=== PATIENT | female | born 1940 | race Caucasian/White ===

== ENCOUNTER 2016-06-16 16:40 | Inpatient (IN) | payer MEDICARE, OTHER ==
[~2016-06-16] VITALS: Ht 157.5 cm; Wt 77.3 kg
[2016-06-16] VITALS (7 sets, daily range): BP systolic 136–150; BP diastolic 82–95; PULSE 80–140; RESP 18–26; O2SAT 90–99
[~2016-06-16 16:40] MED LIST: ANAS1TAB7 PO; ERGO400T3 PO; GLUC-120 PO; MULT1CAP33 PO; OMEG-38 PO; OXYC1TAB24 PO; PRAM0.256 PO; RES15 PO
[2016-06-16 17:12] LABS: BASOPHILS % (AUTO) 0.1 % (0-3); EOSINOPHILS % (AUTO) 0.5 % (0-5); MONOCYTES % (AUTO) 9.1 % (4-12); Mean Corpuscular Hemoglobin 32.9 pg (27.0-35.0); Mean Corpuscular Volume 97.9 fL (81-100); NEUTROPHILS % (AUTO) 78.9 % (40-74); Platelet Count 230 bil/L (150-400)
[2016-06-16 17:37] LABS: TROPONIN T < 0.010 ug/L (0.0-0.011)
--- NOTE | 2016-06-16 17:43 | DRSVH ---
PROCEDURE: X-RAY CHEST ONE VIEW, PORTABLE ([id number]) INDICATIONS: A FIB, COUGH TECHNIQUE: One view of the chest was acquired. COMPARISON: [facility], CR, XR CHEST 2V AP/PA AND LAT, 04/28/2016, 10:50 AM. Former[facility], CR, CHEST 1VW (PORTABLE), 03/19/2014, 12:08. FINDINGS: Surgical changes and devices: None. Lungs and pleura: No pleural effusions or pneumothorax. Moderate patchy left basilar airspace opacit y. Mediastinum: Mediastinal contours appear normal. Heart size is normal. Bones and chest wall: No suspicious bony lesions. Overlying soft tissues appear unremarkable. IMPRESSION: Left basilar pneumonia. Continued plain film surveillance is recommended to ensure resolu tion, and to exclude underlying or central malignancy. Dictated by: Angelika Osorio M.D. on 06/16/2016 at 17:40 Approved by: Angelika Osorio M.D. on 06/16/2016 at 17:40
[2016-06-16 17:46] LABS: Magnesium 1.8 mg/dL (1.6-2.6)
--- NOTE | 2016-06-16 18:21 | ED.REPORT ---
HPI-Chest Pain 40 and Over Date of Service Jun 16, 2016 ED Provider: Faiza Butler MD Patient is a 75 year old female who presents to the ED after being referred by urgent care complaining of a chest pain. Associated symptoms include a non- productive cough onset 2 months ago. She denies fever, chills, or any other symptoms. She was told by a lung specialist in [place] that her cough was due to acid reflux. She was put on medication that worked for a few weeks but her cough has returned. She saw her pcp yesterday who suggested seeing an ENT specialist. She was in atrial fibrillation at urgent care today. Nursing Notes Stated Complaint: COUGH Chief Complaint: Respiratory Complaints Nursing Notes Reviewed: Yes Allergies: Coded Allergies: acetaminophen (Verified Adverse Reaction, Intermediate, activates restless leg syndome, 06/16/16) Scheduled Anastrozole (Anastrozole) 1 Mg Tablet 1 MG PO DAILY Ergocalciferol (Vitamin D2) (Vitamin D) 400 Unit Tablet 400 UNIT PO DAILY Gluc 2Kcl/Chondr/Majo Hy/Hy AC (Glucosamine & Chondroitin Cap) 1 Each Capsule 1 EACH PO DAILY Multivitamin (Multivitamins) 1 Each Capsule 1 EACH PO DAILY David-3/Dha/Epa/Fish Oil (Fish Oil 1,000 mg Softgel) 1 Each Capsule 1 EACH PO DAILY Pramipexole Dihydrochloride (Pramipexole Dihydrochloride) 0.5 Mg Tablet 0.5 MG PO QID Temazepam (Temazepam) 15 Mg Capsule 15 MG PO HS Scheduled PRN Albuterol HFA (Proair HFA) 8.5 Gm Hfa.aer.ad 2 PUFFS INHALATION Q4H PRN PRN For Shortness of Breath oxyCODONE (oxyCODONE) 5 Mg Tablet 2.5-5 MG PO TID PRN PRN For Pain General Time Seen by MD: 18:16 Chief Complaint Chest pain Hx Obtained From: Patient Arrived By: Walk-in Sudden in Onset?: Yes (Today ) Recent Healthcare: Recent doctor visit Risk Factors )( CAD Risk Stratification Diabetes mellitusNo Amphetamine, No Cocaine, No Hypertension, No Smoking Risk factors reviewed )( TAD Risk Stratification No Hypertension, No Risk factors reviewed )( PE Risk Stratification No Coagulation Disorder, No Risk factors reviewed Past Medical History Past Medical History breast cancer x2 anxiety Reports: Diabetes mellitus (diet controlled), Denies: Hypertension Past Surgical History Mastectomy Appendectomy Colonoscopy Reports: Cataract surgery Reports: Tubal ligation Family History noncontributory Smoking History Former Smoker (1/2 pack day for 30 yrs ) Social History Alcohol Use: Denies alcohol use Drug Use: Denies drug use Other Social History: Good social support, , Local resident Ambulatory Status Independent Review of Systems Constitutional: Reports: Chills, Denies: Fever Respiratory: Reports: Non-productive cough Cardiovascular: Reports: Chest pain Complete sys rev & neg: except as marked. Physical Exam Initial Vital Signs Vital Signs (First) Date Time Temp Pulse Resp B/P Pulse Ox O2 Delivery O2 Flow Rate FiO2 06/16/16 16:44 36.8 80 21 146/95 97 Room Air Initial VS: Reviewed Head / Eyes: Atraumatic, Normocephalic Neck: Full range of motion Extremities: Vascular intact, Neuro intact, No swelling Skin: Warm, Dry Neurologic: Alert, Oriented, Nonfocal Psychiatric: Mood/affect normal, Behavior normal, Normal thought content General/Constitutional: Awake, Alert, Well developed Respiratory / Chest: No chest tenderness Diffuse corse cough Cardiovascular: Heart rate NL, Regular rhythm, Heart sounds NL No edema Abdomen: Atraumatic, Soft, Non-tender Interpretation & Diagnostics Lab Results Interpretation Result Diagram: 06/16/16 1705 06/16/16 1705 Test 06/16/16 17:05 White Blood Count 9.6th/mm3 (3.8-10.1) Red Blood Count 3.83mil/mm3 (3.90-5.20) Hemoglobin 12.6g/dL (12.0-15.6) Hematocrit 37.5% (35.0-46.0) Mean Corpuscular Volume 97.9fL (81-100) Mean Corpuscular Hemoglobin 32.9pg (27.0-35.0) Mean Corpuscular Hemoglobin Concent 33.6% (32.0-37.0) Red Cell Distribution Width 11.6% (12.3-15.4) Platelet Count 230bil/L (150-400) Neutrophils (%) (Auto) 78.9% (40-74) Lymphocytes (%) (Auto) 11.1% (14-46) Monocytes (%) (Auto) 9.1% (4-12) Eosinophils (%) (Auto) 0.5% (0-5) Basophils (%) (Auto) 0.1% (0-3) Sodium Level 139mEq/L (134-144) Potassium Level 3.7mEq/L (3.5-5.2) Chloride Level 100mEq/L (97-108) Carbon Dioxide Level 24mmol/L (18-29) Blood Urea Nitrogen 14mg/dL (8-27) Creatinine 0.55mg/dL (0.57-1.00) Estimat Glomerular Filtration Rate 154mL/min (>59) Glucose Level 127mg/dL (60-99) Calcium Level 9.3mg/dL (8.5-10.1) Magnesium Level 1.8mg/dL (1.6-2.6) Total Bilirubin 0.4mg/dL (0.0-1.2) Aspartate Amino Transf (AST/SGOT) 16U/L (0-50) Alanine Aminotransferase (ALT/SGPT) 17U/L (0-32) Alkaline Phosphatase 70U/L (25-165) Troponin T < 0.010ug/L (0.0-0.011) Total Protein 7.6g/dL (6.4-8.4) Albumin 3.6g/dL (3.4-5.0) Procalcitonin < 0.05ng/mL (See Comment) Thyroid Stimulating Hormone (TSH) 2.760uIU/mL (0.450-4.500) ECG Interpretation ECG Interpretation: afib (new) rate 138 rapid ventricular response no ST elevations no T wave inversion Time: 18:00 Interpreted by: ED physician X-Ray Chest Interpretation Chest Xray Interpretation: IMPRESSION: Left basilar pneumonia. Continued plain film surveillance is recommended to ensure resolution, and to exclude underlying or central malignancy. Dictated by: Angelika Osorio M.D. on 06/16/2016 at 17:40 Approved by: Angelika Osorio M.D. on 06/16/2016 at 17:40 View: Portable, 1 view Interpretation / Wet Read by: Interpret - Radiologist Re-Eval/Medical Decision Med Decision/Clinical Course 75-year-old female with no past medical history here with chest pain and cough. Patient had evidence of A. fib with RVR on her initial EKG. This has since resolved. Differential diagnosis includes but is not limited to influenza versus pneumonia versus upper respiratory infection versus ACS. Labs are unremarkable, however, patient does have evidence of pneumonia on her chest x- ray. Given she had episodes of A. fib with RVR documented, at this time, I feel she requires admission for ACS rule out along with IV antibiotics. Patient and family are aware and amenable to plan. Time of Eval: 18:59 Re-Evaluation/Progress Note: Discussed EKG results and need for admission. Patient understands and agrees with plan. All questions addressed at this time. Consultation : Referral / Consult Name: Christine Mcginnis MD Consulted With: Hospitalist Call Returned at: 17:40 Jar Filler: Will see patient, Agrees with eval, Agrees with plan, Accepts admit Note: Discussed patient's case. Accepts admit. Counseled Regarding: Diagnosis, Lab results, Need for admission Discharge & Departure Disposition: ADMITTED TO HOSPITAL Referrals: Sj Godfrey MD (PCP) Scribe Attestation Portions of this note were transcribed by Ana Carrillo. I, Dr. Butler personally performed the history, physical exam and medical decision-making; I reviewed and confirmed the accuracy of the information in the transcribed note. Signed by: Ana Carrillo 06/16/2016, 5195 copies to: Sj Godfrey MD, Rebecca A MD Jun 16, 2016 18:21 ANA CARRILLO Jun 16, 2016 18:34
[2016-06-16] MEDS ORDERED: cefTRIAXone Inj 1,000 MG in IV Premix 1 EACH IV ONE (18:35)
[2016-06-16] MEDS ORDERED: Albuterol-Ipratropium 3 mL Inhalation Solution NEB ONE (18:35)
[2016-06-16] MEDS ORDERED: Alum-Mag Hydrox-Simeth 30 mL Suspension PO PRN ×2 (20:05→21:20)
[2016-06-16] MEDS ORDERED: Ondansetron 2 mg/mL 2 mL Inj IVPUSH PRN (20:05)
[2016-06-16] MEDS ORDERED: PRAM0.5T10 PO (20:57)
[2016-06-16] MEDS ORDERED: ALBU8.5H2 INHALATION (20:57)
[2016-06-16] MEDS ORDERED: OXYC5TAB72 PO (20:57)
[2016-06-16] MEDS ORDERED: Polyethylene Glycol (PEG) 17 Gm Powder PO PRN (21:20)
[2016-06-16] MEDS ORDERED: Albuterol 2.5 mg/3 mL Inhalation Solution NEB PRN (21:20)
--- NOTE | 2016-06-16 21:32 | PCM.HPMED ---
Subjective Date of Service Jun 16, 2016 Primary Provider: Admitting Physician: Christine Mcginnis MD Primary Care Physician: Sj Godfrey MD Attending Physician: Christine Mcginnis MD Admit Status: From the Emergency Department, Full Admit Chief Complaint: cough, History of Present Illness: This is a 75-year-old female who presents with history over the past 2 days of worsening cough. She notes a productive she denies any fevers or chills. Does have malaise with this. No recent sick contacts. He does over the past several months have a cough has been evaluated by pulmonary provider and thought that it was related to acid reflux. He denies any head congestion or postnasal drainage. She denies any wheezing. She does feel like she has some chest tightness with coughing. Denies any abdominal pain. Denies any nausea or vomiting. Denies any alteration in bowel movements. Upon presentation she was found to be in RVR A. fib. Has no known history of this. She initially was seen in urgent care and because of this was sent over to the emergency room. Review of Systems: all other review of sytems are reviewed and are negative except as in HPI. Allergies Coded Allergies: acetaminophen (Verified Adverse Reaction, Intermediate, activates restless leg syndome, 06/16/16) Home Medications Scheduled Anastrozole (Anastrozole) 1 Mg Tablet 1 MG PO DAILY Pramipexole Dihydrochloride (Pramipexole Dihydrochloride) 0.25 Mg Tablet 0.25 MG PO QID Scheduled PRN Temazepam (Temazepam) 15 Mg Capsule 15-30 MG PO HS PRN PRN For Insomnia oxyCODONE-Acetaminophen 5-325 mg (oxyCODONE-Acetaminophen 5-325 mg) 1 Each Tablet 1-2 TAB PO Q6H PRN PRN For Pain Miscellaneous Medications Ergocalciferol (Vitamin D2) (Vitamin D) 400 Unit Tablet 400 UNIT PO Gluc 2Kcl/Chondr/Majo Hy/Hy AC (Glucosamine & Chondroitin Cap) 1 Each Capsule 1 EACH PO Multivitamin (Multivitamins) 1 Each Capsule 1 EACH PO [place]-3/Dha/Epa/Fish Oil (Fish Oil 1,000 mg Softgel) 1 Each Capsule 1 EACH PO PMH breast cancer x2 anxiety Reports: Diabetes mellitus (diet controlled), Denies: Hypertension Surgical History Mastectomy Appendectomy Colonoscopy Reports: Cataract surgery Reports: Tubal ligation Family History No history of heart disease Social History Hx Alcohol Use: No (RARE) Hx Substance Use: No Hx Tobacco Use: Yes (30 years of < 1/2 pack cigarettes per day) Smoking Status: Former Smoker (1/2 pack day for 30 yrs ) Living Arrangement: with Family Exam Vital Signs Vital Sign - Last Date Time Temp Pulse Resp B/P Pulse Ox O2 Delivery O2 Flow Rate FiO2 06/16/16 20:57 102 26 136/82 95 Nasal Cannula 2 06/16/16 16:44 36.8 Exam Constitutional: Ill-appearing female with cough Head: Normocephalic atraumatic Eyes: PERRLA DC EOMI Mouth: No lesions Neck: Carotids 2+ over 4 without bruits Chest: Crackles at her left base and some anterior expiratory wheezes Cor: Irregular regular rate and rhythm S1-S2 Abdomen: Soft nontender bowel sounds present Extremities: No pedal edema Skin: No rashes Psych: Mood and affect appropriate Neuro: Alert and oriented 3, motor strength is intact bilaterally Lab and Diagnostics Labs Laboratory Tests 72 Hours Test 06/16/16 17:05 White Blood Count 9.6th/mm3 (3.8-10.1) Red Blood Count 3.83mil/mm3 (3.90-5.20) Hemoglobin 12.6g/dL (12.0-15.6) Hematocrit 37.5% (35.0-46.0) Mean Corpuscular Volume 97.9fL (81-100) Mean Corpuscular Hemoglobin 32.9pg (27.0-35.0) Mean Corpuscular Hemoglobin Concent 33.6% (32.0-37.0) Red Cell Distribution Width 11.6% (12.3-15.4) Platelet Count 230bil/L (150-400) Neutrophils (%) (Auto) 78.9% (40-74) Lymphocytes (%) (Auto) 11.1% (14-46) Monocytes (%) (Auto) 9.1% (4-12) Eosinophils (%) (Auto) 0.5% (0-5) Basophils (%) (Auto) 0.1% (0-3) Sodium Level 139mEq/L (134-144) Potassium Level 3.7mEq/L (3.5-5.2) Chloride Level 100mEq/L (97-108) Carbon Dioxide Level 24mmol/L (18-29) Blood Urea Nitrogen 14mg/dL (8-27) Creatinine 0.55mg/dL (0.57-1.00) Estimat Glomerular Filtration Rate 154mL/min (>59) Glucose Level 127mg/dL (60-99) Calcium Level 9.3mg/dL (8.5-10.1) Magnesium Level 1.8mg/dL (1.6-2.6) Total Bilirubin 0.4mg/dL (0.0-1.2) Aspartate Amino Transf (AST/SGOT) 16U/L (0-50) Alanine Aminotransferase (ALT/SGPT) 17U/L (0-32) Alkaline Phosphatase 70U/L (25-165) Troponin T < 0.010ug/L (0.0-0.011) Total Protein 7.6g/dL (6.4-8.4) Albumin 3.6g/dL (3.4-5.0) Result Diagram: 06/16/16170406/16/161704 X-Rays, CTs and MRIs Patient Name: CAITLIN FRASER MR#: [id number] [place] [facility] [place] Phys: DOC, ED Date of Service: 06/16/161657 PROCEDURE: X-RAY CHEST ONE VIEW, PORTABLE ([id number]) INDICATIONS: A FIB, COUGH TECHNIQUE: One view of the chest was acquired. COMPARISON: [facility], CR, XR CHEST 2V AP/PA AND LAT, 04/28/2016 , 10:50 AM. [facility], CR, CHEST 1VW (PORTABLE), 03/19/2014, 12:08. FINDINGS: Surgical changes and devices: None. Lungs and pleura: No pleural effusions or pneumothorax. Moderate patchy left basilar airspace opacity. Mediastinum: Mediastinal contours appear normal. Heart size is normal. Bones and chest wall: No suspicious bony lesions. Overlying soft tissues appear unremarkable. IMPRESSION: Left basilar pneumonia. Continued plain film surveillance is recommended to ensure resolution, and to exclude underlying or central malignancy. Dictated by: Angelika Osorio M.D. on 06/16/2016 at 17:40 Approved by: Angelika Osorio M.D. on 06/16/2016 at 17:40 12-lead ECG RVR a fib at 138 otherwise no abnormality. Assessment & Plan # Left lower lobe pneumonia, present on admission Check sputum studies Place and drop precautions until he can get results of respiratory viral PCR Place on IV Rocephin and azithromycin IV Albuterol nebs when necessary for wheezing # RVR A. fib, new onset, present on admission Check TSH and echocardiogram. Check serial cardiac enzymes [id number] is [address] on therapeutic lovenox and discuss with pt tomorrow after echo returns Initiate metoprolol tartrate 12.5 mg by mouth twice a day Place on telemetry. Repeat EKG in a.m. # DVT prophylaxis Patient currently is on therapeutic Lovenox # CODE STATUS Patient is full code. Pain Evaluation: Adequate Pain Control GI Prophylaxis: H2 biju VTE Prophylaxis Indicated: Meets Criteria for Anticoag Therapy VTE Prophylaxis: Sub-Q Enoxaparin (we will place on therapeutic Lovenox secondary to A. fib) VTE Mechanical Devices: Intermittant Pneumatic CD Resuscitation Status: CPR: Attempt Resuscitation Time spent 60 minutes Christine Mcginnis MD Jun 16, 2016 21:32
[2016-06-16] MEDS: 0.9% Sodium Chloride 1,000 ML IV SCH (23:14)
[2016-06-17] VITALS (8 sets, daily range): BP systolic 106–145; BP diastolic 70–86; PULSE 87–112; RESP 18–36; O2SAT 90–97
--- NOTE | 2016-06-17 04:37 | NUR ---
Admit Admitted to 3006 from ED via stretcher. Able to ambulate on arrival. Reports MONREAL and dry non productive cough. Denies SOB @ rest on 2L NC. Tele SR without c/o cardiac CP. Reports sternal pain with cough which has resolved with prn Oxycodone. Denies n/v and tolerating PO intake without any difficulties. Denies issues with bowel or bladder function with last BM on arrival to floor. Good strength with steady gait but decreased activity tolerance r/t MONREAL. Alert, oriented and cooperative with care. NS @ 100ml/hr initiated per orders. Personal belongings at bedside per patient request. Oriented to call light use with return demonstration.
[2016-06-17] MEDS: 0.9% Sodium Chloride 1,000 ML IV SCH ×2 (08:27→18:29)
[2016-06-17] MEDS: cefTRIAXone Inj 2,000 MG in IV Premix 1 EACH IV SCH (08:28)
--- NOTE | 2016-06-17 10:41 | NUR ---
Telemetry: Notified by radiation monitor, patient converted to A-Fib 120-140s @ approx 0955. notified @ approx 1000. No new orders received. Addendum: 06/17/16 at 1700 by JP GANDHI RN MD notified of patient HR continuing to be A Fib 120-130s. Order received for Metoprolol IV. Addendum: 06/17/16 at 1731 by JP GANDHI RN IV Metoprolol administered. HR ranging from 90s to 120s per radiation monitor.
[2016-06-17] MEDS: Azithromycin Inj 500 MG in Dextrose 5% w/Vial Mate 250 ML IV SCH (10:44)
[2016-06-17 13:56] LABS: APPEARANCE,URINE HAZY (CLEAR,HAZY); COLOR,URINE DARK YELLOW (YELLOW); OCCULT BLOOD,URINE NEGATIVE (NEGATIVE); UROBILINOGEN,URINE NORMAL (NORMAL)
--- NOTE | 2016-06-17 16:19 | NUR ---
Social Work: Initial Assessment Data: Pt is a 75 y/o female admitted for new onset AFIB, pneumonia, chest pain. Pt's PCP is Dr Godfrey, pt's insurance is Medicare with [employer]. EMR reviewed, PROGRAMS ASSISTANT met with pt at bedside, role explained. Pt states that she lives with her spouse in a single story home where she uses no DME. She states her spouse is a good support to contact if needed and that she does not have a DPOA, she accepted information. Pt statest hat she drives, has no history of SNF or HH, no LTC or VA benefits, and is not a caregiver for another. She reports she has been up in her room independently. Likely no d/c planning needs at this time. PROGRAMS ASSISTANT will continue to follow if needs arise. Assessment: Pt who is independent at baseline. Plan: Pt will d/c home via POV with spouse when medically stable. Likely no d/c planning needs at this time. PROGRAMS ASSISTANT will continue to follow if needs arise. RADHA Thomas Addendum: 06/17/16 at 1622 by SANA HORN Amended: Links added.
[2016-06-17] MEDS ORDERED: MeTOProlol 1 mg/mL 5 mL Inj IVPUSH STA (16:54)
--- NOTE | 2016-06-17 17:14 | NUR ---
Case Management: IMM explained to patient at 1648, signed copy in chart, copy given to patient. Nikkie Roa RN UR
--- NOTE | 2016-06-17 19:45 | PCM.PNMED ---
Subjective Date of Service Jun 17, 2016 Subjective The patient continues to complain of cough which she has had for some time. Her son is at the bedside and he states that she has had a cough for about 5 months. The patient denies this and states it has been a little bit less than that. However, she is still suffering from cough and is not feeling any better since admission last evening. Exam Vital Signs Vital Sign - Last Date Time Temp Pulse Resp B/P Pulse Ox O2 Delivery O2 Flow Rate FiO2 06/17/16 18:27 36.8 112 18 123/84 92 Nasal Cannula 2.00 Intake and Output 06/16/16 06/16/16 06/17/16 Cumulative From/Thru 15:00 23:00 07:00 06/16/16 16:44 - 06/17/16 00:47 Intake Total 0 ml 0 ml Balance 0 ml 0 ml IV Total 0 ml 0 ml Exam General: Patient appears uncomfortable and began having a coughing fit while I was visiting with her. She then became nauseous and had some dry heaves. HEENT: Head is atraumatic normocephalic. Eyes: Pupils are equally round and reactive to light and accommodation. Extraocular muscles are intact. Sclera are white anicteric. Subconjunctival mucosa is pink. Ears and nose are unremarkable. Oropharynx: There are no mucosal lesions, there is no thrush, there is no pharyngitis. Neck: Is supple, there are no nodes or masses or tenderness. Chest: There is decreased breath sounds at the left base. There are no rales, rhonchi, wheezes or rubs. Heart: Rate, rhythm is regular. There is no murmur, rub or gallop appreciated although heart tones are distant. Abdomen: Good bowel sounds are present. Abdomen is obese, soft, nontender, no organomegaly or masses were appreciated. Extremities: Are symmetrical and well perfused. There is no edema, there is no cellulitis, no rash. Neurologic: There are no focal neurological deficits. Cranial nerves II through XII are intact. There are no sensory or motor deficits. Psychiatric: Patients mood is calm and shows no sign of significant agitation. Genital: Deferred Rectal: Deferred Lab and Diagnostics Result Diagram: 06/16/16 1705 06/16/161704 X-Rays, CTs and MRIs Patient Name: CAITLIN FRASER MR#: [id number] Location: [facility] Ordering Phys: LESLIE, SALINA BURGESS Date of Service: 06/16/16 1658 PROCEDURE: X-RAY CHEST ONE VIEW, PORTABLE ([id number]) INDICATIONS: A FIB, COUGH TECHNIQUE: One view of the chest was acquired. COMPARISON: [facility], CR, XR CHEST 2V AP/PA AND LAT, 04/28/2016 , 10:50 AM. [facility], CR, CHEST 1VW (PORTABLE), 03/19/2014, 12:08. FINDINGS: Surgical changes and devices: None. Lungs and pleura: No pleural effusions or pneumothorax. Moderate patchy left basilar airspace opacity. Mediastinum: Mediastinal contours appear normal. Heart size is normal. Bones and chest wall: No suspicious bony lesions. Overlying soft tissues appear unremarkable. IMPRESSION: Left basilar pneumonia. Continued plain film surveillance is recommended to ensure resolution, and to exclude underlying or central malignancy. Dictated by: Angelika Osorio M.D. on 06/16/2016 at 17:40 Approved by: Angelika Osorio M.D. on 06/16/2016 at 17:40 12-lead ECG RVR a fib at 138 otherwise no abnormality. Cardiac Echo Impressions Pending Assessment & Plan This is a 75-year-old female who presents with history over the past 2 days of worsening cough. She notes a productive she denies any fevers or chills. Does have malaise with this. No recent sick contacts. He does over the past several months have a cough has been evaluated by pulmonary provider and thought that it was related to acid reflux. He denies any head congestion or postnasal drainage. She denies any wheezing. She does feel like she has some chest tightness with coughing. Denies any abdominal pain. Denies any nausea or vomiting. Denies any alteration in bowel movements. Upon presentation she was found to be in RVR A. fib. Has no known history of this. She initially was seen in urgent care and because of this was sent over to the emergency room. # Left lower lobe pneumonia versus atelectasis, present on admission -We will order incentive spirometry -Check sputum studies -May remove droplet precautions as results of respiratory viral PCR are negative -Continue on IV Rocephin and azithromycin IV -Continue Albuterol nebs when necessary for wheezing -If no improvement may need CT scan of the chest. # RVR A. fib, new onset, present on admission and ongoing -We will give extra dose of IV metoprolol and increase metoprolol to 25 mg by mouth twice a day from 12.5 mg by mouth twice a day -TSH is normal -The echocardiogram is pending. -Check serial cardiac enzymes which are negative so far. -[id number] is [address] on therapeutic lovenox and discuss with pt tomorrow after echo returns. I suspect patient is going to require long-term anticoagulation -Continue on telemetry. Repeat EKG in a.m. # DVT prophylaxis Patient currently is on therapeutic Lovenox # CODE STATUS Patient is full code. Pain Evaluation: Adequate Pain Control GI Prophylaxis: H2 biju VTE Prophylaxis: Sub-Q Enoxaparin (we will place on therapeutic Lovenox secondary to A. fib) VTE Mechanical Devices: Intermittant Pneumatic CD Resuscitation Status: CPR: Attempt Resuscitation Aubrey Meadows MD Jun 17, 2016 19:45
[2016-06-17 21:25] LABS: BASOPHILS % (AUTO) 0.1 % (0-3); EOSINOPHILS % (AUTO) 0.1 % (0-5); MONOCYTES % (AUTO) 13.4 % (4-12); Mean Corpuscular Hemoglobin 33.1 pg (27.0-35.0); NEUTROPHILS % (AUTO) 73.3 % (40-74); Platelet Count 233 bil/L (150-400)
[2016-06-18] VITALS (14 sets, daily range): BP systolic 124–140; BP diastolic 77–93; PULSE 89–142; RESP 20–30; O2SAT 88–95
[2016-06-18] MEDS: 0.9% Sodium Chloride 1,000 ML IV SCH ×2 (04:08→13:20)
[2016-06-18] MEDS: cefTRIAXone Inj 2,000 MG in IV Premix 1 EACH IV SCH (08:32)
[2016-06-18] MEDS: Albuterol 2.5 mg/3 mL Inhalation Solution NEB PRN ×2 (09:29→16:58)
[2016-06-18] MEDS: Azithromycin Inj 500 MG in Dextrose 5% w/Vial Mate 250 ML IV SCH (10:20)
[2016-06-18 10:53] LABS: BASOPHILS % (AUTO) 0.1 % (0-3); EOSINOPHILS % (AUTO) 0.6 % (0-5); Mean Corpuscular Hemoglobin 32.4 pg (27.0-35.0); Mean Corpuscular Volume 101.3 fL (81-100); NEUTROPHILS % (AUTO) 78.1 % (40-74); Platelet Count 227 bil/L (150-400)
[2016-06-18 11:36] LABS: Magnesium 1.9 mg/dL (1.6-2.6)
[2016-06-18] MEDS: guaiFENesin DM 200-20 mg/10 mL Syrup PO PRN ×2 (11:53→17:32)
--- NOTE | 2016-06-18 15:52 | DRSVH ---
PROCEDURE: CT ANGIO CHEST PULMONARY EMBOLISM ([id number]) INDICATIONS: Chest discomfort and SOB and Cough/Possible PE TECHNIQUE: After the administration of intravenous contrast, 2 mm thick sections acquired from the pulmonary api chino to the posterior costophrenic angles. 3-dimensional maximum intensity projection (MIP) coronal a nd sagittal reformats were then acquired through the thorax. For radiation dose reduction, the follo wing was used: automated exposure control, adjustment of mA and/or kV according to patient size. COMPARISON: [facility], CR, XR CHEST 1VW (PORTABLE), 06/16/2016, 16:59. FINDINGS: Image quality: Excellent. Pulmonary arteries: Pulmonary arteries are normal in size, and demonstrate no intraluminal filling d efects to suggest central pulmonary embolism. Lungs and pleura: Focal opacity noted in the right lower lobe which could represent atelectasis versu s pneumonia. Patchy opacity noted in the left lung base suspicious for pneumonia. Trace bilateral ple ural fluid collections are noted. Central and peripheral airways are patent. Mediastinum: Heart size is enlarged, without pericardial effusion. Prominent bilateral hilar and med iastinal lymph nodes are noted which could be reactive or neoplastic. Thoracic aorta is normal in krissy iber and enhancement. Esophagus is normal in caliber, without hiatal hernia. Bones and chest wall: Multiple surgical clips noted in the breasts bilaterally. No suspicious bony l esions. Ribs and thoracic spine appear intact throughout. Thyroid gland is within normal limits. N o axillary or supraclavicular adenopathy. Abdomen: Visualized upper abdominal solid organs appear normal in the early arterial phase of enhanc ement. IMPRESSION: 1. No pulmonary embolus. 2. Bibasilar lung opacities compatible with atelectasis versus pneumonia. Please correlate with clini krissy laboratory data. 3. Trace bilateral pleural effusions. 4. Cardiomegaly. 5. Bilateral hilar and mediastinal lymphadenopathy which could be reactive or neoplastic. Dictated by: Abigail Ty MD, PhD on 06/18/2016 at 15:50 Approved by: Abigail Ty MD, PhD on 06/18/2016 at 15:50
--- NOTE | 2016-06-18 16:49 | DRSVH ---
[facility] [address] [place] [address] Echocardiogram Report Name: CAITLIN FRASER MStudy Date: 06/18/2016 Height: 62 in Hospital Exam Location: [facility] Weight: 181 lb Gender: Female BSA: 1.8 m2 : 1940 Age: 75 yrs BP: 135/91 mmHg Reason For Study: Atrial fibrillation Ordering Physician: Performed By: Richa Diamond Referring Physician: Sj Godfrey Interpretation Summary 1) Normal left ventricular thickness, size, wall motion, and systolic function (EF 60-65%). 2) Normal right ventricular size and function. 3) Mild prolapse on the anterior leaflet of the mitral valve. 4) Mild posteriorly directed mitral regurgitation from the prolapse. 5) Moderately dilated left atrium. 6) Mildly enlarged ascending aorta (diameter 4.1cm). 7) Right sided volume overload present as noted on dilated IVC that collapses less than 50% with sniff test. 8) Compared to the Echo done 09/14/2012, atrial fibrllation is present and right sided filling pressure is higher on today's study. Procedure: A two-dimensional transthoracic echocardiogram with color flow and Doppler was performed. The study quality was technically adequate. Comparison is made with the echocardiogram of 09-14-12. The patient was in atrial fibrillation with heart rates between 95-112 bpm during the exam. Left Ventricle: The left ventricle is normal in size, wall thickness, and systolic function without any focal wall motion abnormalities. The ejection fraction is estimated to be 60-65%. Right Ventricle: The right ventricle is normal in size and function. Atria: The left atrium is moderately dilated. Right atrial size is normal. The interatrial septum is intact with no evidence for an atrial septal defect. Mitral Valve: The mitral valve leaflets appear moderately thickened, but open well. There is mild mitral valve prolapse. There is prolapse of the anterior mitral valve leaflet. There is mild mitral regurgitation. There is an eccentric jet of mitral regurgitation that is directed posteriorly. Aortic Valve: The aortic valve is trileaflet. The aortic valve opens well. No aortic regurgitation is present. Tricuspid Valve: The tricuspid valve leaflets are thin and pliable. There is mild tricuspid regurgitation. The right ventricular systolic pressure is estimated at 42 mmHg assuming a right atrial pressure of 15 mm Hg. Pulmonic Valve: The pulmonic valve is not well seen, but is grossly normal. There is trace pulmonic regurgitation. Great Vessels: This is unchanged compared to the previous study. Aortic root borderline increased. The ascending aorta is mildly enlarged. There has been no significant change since the previous study. The IVC is dilated (diameter is greater than 2.1 cm) and it collapses less than 50% with a sniff. This suggests a high right atrial pressure of 15 mm Hg. Pericardium/ Pleura There is no pericardial effusion. There is no pleural effusion. MMode/2D Measurements & Calculations LVIDd: 4.6 cm LA dimension: 4.2 cm RA long axis Ao root diam: 4.0 cm LVIDs: 3.1 cm Aortic Jxn: 3.1 cm FS: 32.7 % LA A2 area: 26.9 cm RA area asc Aorta Diam IVSd: 1.1 cm LA A4 area: 22.8 cm LVPWd: 0.96 cm LA length (vol) : 16.0 cm Ao Arch Diam RA vol (Proximal trans.) LA vol: 87.9 ml : 42.9 ml LA vol index RA : 23.4 mm/ RVDd major IVC diam: 2.7 cm RVDd minor : 3.3 cm LV patel. diameter/BSALV sys. diameter/BSA (cm/m^2): 2.5 (cm/m^2): 1.7 Doppler Measurements & Calculations Ao V2 max MV P1/2t: 52.2 msec Med Peak E' Librado TR max librado : 116.1 cm/sec : 258.3 cm/sec Ao max PG Lat Peak E' Librado TR max PG : 5.4 mmHg : 11.4 cm/sec : 26.7 mmHg Ao mean PG PA V2 max : 2.6 mmHg : 68.5 cm/sec PA mean PG : 0.99 mmHg PA Accel Time : 0.13 sec MV V2 mean MV P1/2t max librado Ao V2 mean PA V2 mean : 59.3 cm/sec : 73.9 cm/sec : 46.2 cm/sec MV mean PG MVA(P1/2t): 4.2 cm2 Ao V2 VTI: 16.8 cm MV V2 VTI : 22.4 cm Reading Physician:04:47 PM
[2016-06-18] MEDS ORDERED: Furosemide 10 mg/mL 2 mL Inj IVPUSH SCH (17:20)
[2016-06-18] MEDS: Potassium Chloride 20 mEq SR Tablet PO SCH (17:36)
--- NOTE | 2016-06-18 18:41 | NUR ---
Fluid overload Pt had both ECHO and CT of chest done today. Pt appears to be in fluid overload. She had increased wheezing, increased right ventricle size and increased SOB. Pt was started on lasix at 1700 and with K supplement.
[2016-06-18] MEDS ORDERED: MeTOProlol 1 mg/mL 5 mL Inj IVPUSH ONE (20:00)
[2016-06-18 20:29] LABS: INR 1.04 ratio
[2016-06-18] MEDS: guaiFENesin 600 mg ER12 Tablet PO SCH (20:30)
[2016-06-18] MEDS: MeTOProlol XL 25 mg ER24 Tablet PO SCH ×2 (20:30→20:53)
--- NOTE | 2016-06-18 20:55 | PCM.PNMED ---
Subjective Date of Service Jun 18, 2016 Subjective Patient is feeling a little bit better today. She is little stronger, however she still has a significant cough. Exam Vital Signs Vital Sign - Last Date Time Temp Pulse Resp B/P Pulse Ox O2 Delivery O2 Flow Rate FiO2 06/18/16 20:10 142 140/89 06/18/16 19:25 Supplement Oxygen 06/18/16 18:26 37.2 26 92 2.00 Intake and Output 06/17/16 06/17/16 06/18/16 Cumulative From/Thru 15:00 23:00 07:00 06/16/16 16:44 - 06/18/16 06:32 Intake Total 947 ml 1413 ml 1384 ml 3744 ml Output Total 100 ml 100 ml Balance 947 ml 1313 ml 1384 ml 3644 ml Intake Oral 480 ml 480 ml IV Total 947 ml 933 ml 1384 ml 3264 ml Output Urine Total 100 ml 100 ml # Voids 2 2 Exam General: Patient is still coughing, however appears much more comfortable today. Overall her appearance is much brighter. HEENT: Head is atraumatic normocephalic. Eyes: Pupils are equally round and reactive to light and accommodation. Extraocular muscles are intact. Sclera are white anicteric. Subconjunctival mucosa is pink. Ears and nose are unremarkable. Oropharynx: There are no mucosal lesions, there is no thrush, there is no pharyngitis. Neck: Is supple, there are no nodes or masses or tenderness. Chest: There is decreased breath sounds at the left base. There are now rales heard at the bases bilaterally. There are no rhonchi, wheezes or rubs. Heart: Rate is controlled at the time of my exam, rhythm is irregular. There is no murmur, rub or gallop appreciated although heart tones are distant. Abdomen: Good bowel sounds are present. Abdomen is obese, soft, nontender, no organomegaly or masses were appreciated. Extremities: Are symmetrical and well perfused. There is no edema, there is no cellulitis, no rash. Neurologic: There are no focal neurological deficits. Cranial nerves II through XII are intact. There are no sensory or motor deficits. Psychiatric: Patients mood is calm and shows no sign of significant agitation. Genital: Deferred Rectal: Deferred Lab and Diagnostics Result Diagram: 06/18/16 1035 06/18/16 1035 X-Rays, CTs and MRIs Patient Name: CAITLIN FRASER MR#: [id number] [place] [facility]ing Phys: SALINA NELSON MD Date of Service: 06/16/16 1652 PROCEDURE: X-RAY CHEST ONE VIEW, PORTABLE ([id number]) INDICATIONS: A FIB, COUGH TECHNIQUE: One view of the chest was acquired. COMPARISON: [facility], CR, XR CHEST 2V AP/PA AND LAT, 04/28/2016 , 10:50 AM. [facility], CR, CHEST 1VW (PORTABLE), 03/19/2014, 12:08. FINDINGS: Surgical changes and devices: None. Lungs and pleura: No pleural effusions or pneumothorax. Moderate patchy left basilar airspace opacity. Mediastinum: Mediastinal contours appear normal. Heart size is normal. Bones and chest wall: No suspicious bony lesions. Overlying soft tissues appear unremarkable. IMPRESSION: Left basilar pneumonia. Continued plain film surveillance is recommended to ensure resolution, and to exclude underlying or central malignancy. Dictated by: Angelika Osorio M.D. on 06/16/2016 at 17:40 Approved by: Angelika Osorio M.D. on 06/16/2016 at 17:40 PROCEDURE: CT ANGIO CHEST PULMONARY EMBOLISM ([id number]) INDICATIONS: Chest discomfort and SOB and Cough/Possible PE TECHNIQUE: After the administration of intravenous contrast, 2 mm thick sections acquired from the pulmonary apices to the posterior costophrenic angles. 3-dimensional maximum intensity projection (MIP) coronal and sagittal reformats were then acquired through the thorax. For radiation dose reduction, the following was used: automated exposure control, adjustment of mA and/or kV according to patient size. COMPARISON: [facility], CR, XR CHEST 1VW (PORTABLE), 06/16/2016, 16 :59. FINDINGS: Image quality: Excellent. Pulmonary arteries: Pulmonary arteries are normal in size, and demonstrate no intraluminal filling defects to suggest central pulmonary embolism. Lungs and pleura: Focal opacity noted in the right lower lobe which could represent atelectasis versus pneumonia. Patchy opacity noted in the left lung base suspicious for pneumonia. Trace bilateral pleural fluid collections are noted. Central and peripheral airways are patent. Mediastinum: Heart size is enlarged, without pericardial effusion. Prominent bilateral hilar and mediastinal lymph nodes are noted which could be reactive or neoplastic. Thoracic aorta is normal in caliber and enhancement. Esophagus is normal in caliber, without hiatal hernia. Bones and chest wall: Multiple surgical clips noted in the breasts bilaterally. No suspicious bony lesions. Ribs and thoracic spine appear intact throughout. Thyroid gland is within normal limits. No axillary or supraclavicular adenopathy. Abdomen: Visualized upper abdominal solid organs appear normal in the early arterial phase of enhancement. IMPRESSION: 1. No pulmonary embolus. 2. Bibasilar lung opacities compatible with atelectasis versus pneumonia. Please correlate with clinical laboratory data. 3. Trace bilateral pleural effusions. 4. Cardiomegaly. 5. Bilateral hilar and mediastinal lymphadenopathy which could be reactive or neoplastic. Dictated by: Abigail Ty MD, PhD on 06/18/2016 at 15:50 Approved by: Abigail Ty MD, PhD on 06/18/2016 at 15:50 12-lead ECG RVR a fib at 138 otherwise no abnormality. Cardiac Echo Impressions Echocardiogram Report Name: CAITLIN FRASER MStudy Date: 06/18/2016 Height: 62 in Hospital Exam Location: [facility] Weight: 181 lb Gender: Female BSA: 1.8 m2 : 1940 Age: 75 yrs BP: 135/91 mmHg Reason For Study: Atrial fibrillation Ordering Physician: Performed By: Richa Diamond Referring Physician: Sj Godfrey Interpretation Summary 1) Normal left ventricular thickness, size, wall motion, and systolic function (EF 60-65%). 2) Normal right ventricular size and function. 3) Mild prolapse on the anterior leaflet of the mitral valve. 4) Mild posteriorly directed mitral regurgitation from the prolapse. 5) Moderately dilated left atrium. 6) Mildly enlarged ascending aorta (diameter 4.1cm). 7) Right sided volume overload present as noted on dilated IVC that collapses less than 50% with sniff test. 8) Compared to the Echo done 09/14/2012, atrial fibrllation is present and right sided filling pressure is higher on today's study. Assessment & Plan This is a 75-year-old female who presents with history over the past 2 days of worsening cough. She notes a productive she denies any fevers or chills. Does have malaise with this. No recent sick contacts. He does over the past several months have a cough has been evaluated by pulmonary provider and thought that it was related to acid reflux. He denies any head congestion or postnasal drainage. She denies any wheezing. She does feel like she has some chest tightness with coughing. Denies any abdominal pain. Denies any nausea or vomiting. Denies any alteration in bowel movements. Upon presentation she was found to be in RVR A. fib. Has no known history of this. She initially was seen in urgent care and because of this was sent over to the emergency room. # Bilateral lower lobe pneumonia versus atelectasis, present on admission as seen on CT scan -We continue incentive spirometry -Sputum culture not available as there is no specimen as patient is unable to expectorate one. -May remove droplet precautions as results of respiratory viral PCR are negative -Continue on IV Rocephin and azithromycin IV -Continue Albuterol nebs when necessary for wheezing # RVR A. fib, new onset, present on admission and ongoing - Continue increased dose of metoprolol 25 mg by mouth twice a day (from 12.5 mg by mouth twice a day) day #1. -This afternoon 06/18/2016 patient will require another dose of IV metoprolol 2.5 mg. -TSH is normal -Consider cardiology consultation -Check serial cardiac enzymes which are negative so far. -[id number] is 4-[address] on therapeutic lovenox and Coumadin per pharmacy dosing. I suspect patient is going to require long-term anticoagulation -Continue on telemetry. Repeat EKG in a.m. # DVT prophylaxis Patient currently is on therapeutic Lovenox # CODE STATUS Patient is full code. Pain Evaluation: Adequate Pain Control GI Prophylaxis: H2 biju VTE Prophylaxis: Sub-Q Enoxaparin (we will place on therapeutic Lovenox secondary to A. fib) VTE Mechanical Devices: Intermittant Pneumatic CD Resuscitation Status: CPR: Attempt Resuscitation Aubrey Meadows MD Jun 18, 2016 20:55
--- NOTE | 2016-06-18 22:46 | NUR ---
High Heart Rate/Febrile Pt's heart rate remains 125-145 afib. Metoprolol Succinate given one hour ago as well as IV metoprolol 1 1/2 hr ago. Pt has a temp of 38.1C She has an allergy to tylenol. Given cold wash cloth. Removed blankets. Fan on. Reported HR and Temp to MD Will cont to monitor
[2016-06-18] MEDS ORDERED: MeTOProlol 1 mg/mL 5 mL Inj IV ONE (23:10)
[2016-06-19] VITALS (9 sets, daily range): BP systolic 100–137; BP diastolic 59–80; PULSE 96–136; RESP 20–24; O2SAT 94–100
--- NOTE | 2016-06-19 00:58 | NUR ---
Temp/HR Pt's overall HR is 104-110 Afib. Temp reduced to 37.9 Fan remains on in room. Will cont to monitor
--- NOTE | 2016-06-19 02:24 | PCM.CONPHA ---
Subjective Date of Service: Jun 18, 2016 Requesting Provider: Aubrey Meadows MD Reason for Pharmacy Consult: Anticoagulation Management Objective Vital Signs Date Time Temp Pulse Resp B/P Pulse Ox O2 Delivery O2 Flow Rate FiO2 06/18/16 23:28 37.9 130 124/77 06/18/16 21:56 38.1 06/18/16 21:09 38.1 129 26 95 OxyMask 3.00 06/18/16 20:10 142 140/89 06/18/16 19:25 Supplement Oxygen 06/18/16 18:26 37.2 120 26 133/93 92 Nasal Cannula 2.00 06/18/16 16:58 105 22 94 Nasal Cannula 2.00 06/18/16 16:00 Supplement Oxygen 06/18/16 13:10 36.4 104 26 128/92 93 Nasal Cannula 2.00 06/18/16 12:30 100 24 95 Nasal Cannula 2.00 06/18/16 09:30 97 20 93 Nasal Cannula 06/18/16 09:11 36.5 117 30 140/89 91 Nasal Cannula 2.00 06/18/16 09:00 Supplement Oxygen 06/18/16 08:00 93 06/18/16 05:31 36.7 89 26 135/91 92 OxyMask 5.00 06/18/16 05:00 117 06/18/16 02:23 95 Nasal Cannula 5.00 06/18/16 02:21 37.0 94 28 130/79 88 Nasal Cannula 2.00 Intake and Output 06/17/16 06/18/16 06/19/16 00:00 00:00 00:00 Intake Total 2360 ml 2740 ml Output Total 100 ml 1300 ml Balance 2260 ml 1440 ml Weight (Kilograms): 82.000 Height (Feet): 5 Height (Inches): 2.00 Test 06/16/16 17:05 06/17/16 10:56 06/18/16 05:00 06/18/16 10:35 Hemoglobin A1c 6.2% (4.8-5.6) Procalcitonin < 0.05ng/mL (See Comment) Thyroid Stimulating Hormone (TSH) 2.760uIU/mL (0.450-4.500) Urine Color Dark yellow (YELLOW) Urine Appearance Hazy (CLEAR,HAZY) Urine pH 6.0 (5.0-8.0) Urine Specific [place] 1.030 (1.003-1.035) Urine Protein Tracemg/dL (NEG,TRACE) Urine Glucose (UA) Negativemg/dL (NEGATIVE) Urine Ketones Negativemg/dL (NEGATIVE) Urine Occult Blood Negative (NEGATIVE) Urine Nitrite Negative (NEGATIVE) Urine Bilirubin Negative (NEGATIVE) Urine Urobilinogen Normalmg/dL (NORMAL) Urine Leukocyte Esterase Negative (NEGATIVE) Urine RBC 0-2/hpf (0-2) Urine WBC 0-5/hpf (0-5) Urine Epithelial Cells Occasional/hpf (NONE-MOD) Urine Crystals None seen (NONE SEEN) Urine Bacteria None/hpf (NONE-FEW) Urine Hyaline Casts None/lpf (NONE) Urine Granular Casts None seen (NONE SEEN) Urine Waxy Casts None seen (NONE SEEN) Urine Red Blood Cell Casts None seen (NONE SEEN) Urine White Blood Cell Casts None seen (NONE SEEN) Urine Mucus Present (None Seen) Urine Trichomonas None seen (NONE SEEN) Urine Yeast None (NONE SEEN) Urinalysis Comment None Urine Culture Reflexed Not indicated Troponin T 0.010ug/L (0.0-0.011) White Blood Count 6.9th/mm3 (3.8-10.1) Red Blood Count 3.06mil/mm3 (3.90-5.20) Hemoglobin 9.9g/dL (12.0-15.6) Hematocrit 31.0% (35.0-46.0) Mean Corpuscular Volume 101.3fL (81-100) Mean Corpuscular Hemoglobin 32.4pg (27.0-35.0) Mean Corpuscular Hemoglobin Concent 31.9% (32.0-37.0) Red Cell Distribution Width 11.8% (12.3-15.4) Platelet Count 227bil/L (150-400) Neutrophils (%) (Auto) 78.1% (40-74) Lymphocytes (%) (Auto) 12.8% (14-46) Monocytes (%) (Auto) 8.0% (4-12) Eosinophils (%) (Auto) 0.6% (0-5) Basophils (%) (Auto) 0.1% (0-3) Sodium Level 133mEq/L (134-144) Potassium Level 3.9mEq/L (3.5-5.2) Chloride Level 97mEq/L (97-108) Carbon Dioxide Level 26mmol/L (18-29) Blood Urea Nitrogen 12mg/dL (8-27) Creatinine 0.46mg/dL (0.57-1.00) Estimat Glomerular Filtration Rate 189mL/min (>59) Glucose Level 267mg/dL (60-99) Calcium Level 8.3mg/dL (8.5-10.1) Magnesium Level 1.9mg/dL (1.6-2.6) Total Bilirubin 0.2mg/dL (0.0-1.2) Aspartate Amino Transf (AST/SGOT) 17U/L (0-50) Alanine Aminotransferase (ALT/SGPT) 17U/L (0-32) Alkaline Phosphatase 58U/L (25-165) Total Protein 5.9g/dL (6.4-8.4) Albumin 3.1g/dL (3.4-5.0) Test 06/18/16 19:50 Prothrombin Time 11.1sec (8.1-12.5) Prothromb Time International Ratio 1.04ratio Assessment/Plan Assessment/Plan A: * Warfarin management by pharmacy for 75 y/o woman with new onset atrial fibrillation * She is also on therapeutic Lovenox at 80 mg every 12 hours for bridging * Her INR was 1.04 on 06/18/16, which is baseline * The patient is on azithromycin, which interacts with warfarin, causing a greater increase in INR P: * Gave the patient a 2.5 mg dose of warfarin on 06/18 * Drawing daily INR * Target an INR range of 2 - 3 * Pharmacy to determine warfarin dose based on INR results Thank you. Pharmacy will continue to follow. Kenya Campbell, PharmD Kenya Campbell Jun 19, 2016 02:24
[2016-06-19] MEDS: guaiFENesin DM 200-20 mg/10 mL Syrup PO PRN ×2 (05:26→20:41)
[2016-06-19 06:13] LABS: BASOPHILS % (AUTO) 0.2 % (0-3); EOSINOPHILS % (AUTO) 1.5 % (0-5); MONOCYTES % (AUTO) 15.5 % (4-12); Mean Corpuscular Hemoglobin 32.7 pg (27.0-35.0); Mean Corpuscular Volume 101 fL (81-100); NEUTROPHILS % (AUTO) 65.3 % (40-74); Platelet Count 239 bil/L (150-400)
[2016-06-19 06:21] LABS: INR 1.06 ratio
[2016-06-19] MEDS: Albuterol 2.5 mg/3 mL Inhalation Solution NEB PRN (08:10)
[2016-06-19] MEDS ORDERED: Levalbuterol 1.25 mg/0.5mL Inhalation Solution NEB PRN (09:30)
[2016-06-19] MEDS: guaiFENesin 600 mg ER12 Tablet PO SCH ×2 (09:57→20:35)
[2016-06-19] MEDS: MeTOProlol XL 25 mg ER24 Tablet PO SCH (09:58)
[2016-06-19] MEDS: Potassium Chloride 20 mEq SR Tablet PO SCH (09:59)
[2016-06-19] MEDS: Furosemide 10 mg/mL 2 mL Inj IVPUSH SCH (10:00)
[2016-06-19] MEDS: cefTRIAXone Inj 2,000 MG in IV Premix 1 EACH IV SCH (10:00)
[2016-06-19] MEDS ORDERED: MeTOProlol XL 25 mg ER24 Tablet PO ONE (11:16)
[2016-06-19] MEDS: Azithromycin Inj 500 MG in Dextrose 5% w/Vial Mate 250 ML IV SCH (11:21)
--- NOTE | 2016-06-19 12:36 | PCM.CHPCAR ---
Consult Subjective Date of service Jun 19, 2016 Date of admit Jun 16, 2016 at 20:04 Provider Requesting Consult Requesting Provider: Aubrey Medaows MD Primary Care Physician Primary Care Provider: jS Godfrey MD Chief Complaint dyspnea History of Present Illness 75 yo h/o bilateral breast cancer s/p lumpectomy, radiation, and chemo in 2009 and 2012 and otherwise healthy admitted with dyspnea. Patient states that she could walk about a mile at her baseline without much difficulty. About 3 months ago, patient developed a cough and has had gradual worsening of her dyspnea to the degree that she cannot breathe well even at rest. In the ER, she was noted to be in atrial fibrillation with rapid ventricular response. Further investigations revealed bilateral lower lobe infiltrate that was initially felt to be from pneumonia and treated with antibiotics but patient did not improve. Echocardiogram done yesterday showed hypervolemia with normal left ventricular function. She received furosemide 20 mg IV times one yesterday and felt a little bit better today. Her dose was increased to 40 mg IV today and she feels even better and remains on oxygen. Denies fevers, chills, nausea, or vomiting. She does get chest pain that is related to her cough. Review of Systems Review of Systems per HPI and otherwise unremarkable PMH Past Medical History # HFpEF (diastolic heart failure) # Persistent atrial fibrillation # Mitral valve prolapse with mild mitral regurgitation # Bilteral breast cancer s/p lumpectomy, radiation, and chemo in 2009 and 2012 # Former smoker: quit 2003 Scheduled Anastrozole (Anastrozole) 1 Mg Tablet 1 MG PO DAILY (Reported) Ergocalciferol (Vitamin D2) (Vitamin D) 400 Unit Tablet 400 UNIT PO DAILY ( Reported) Gluc 2Kcl/Chondr/Majo Hy/Hy AC (Glucosamine & Chondroitin Cap) 1 Each Capsule 1 EACH PO DAILY (Reported) Multivitamin (Multivitamins) 1 Each Capsule 1 EACH PO DAILY (Reported) Somers-3/Dha/Epa/Fish Oil (Fish Oil 1,000 mg Softgel) 1 Each Capsule 1 EACH PO DAILY (Reported) Pramipexole Dihydrochloride (Pramipexole Dihydrochloride) 0.5 Mg Tablet 0.5 MG PO QID (Reported) Temazepam (Temazepam) 15 Mg Capsule 15 MG PO HS (Reported) Scheduled PRN Albuterol HFA (Proair HFA) 8.5 Gm Hfa.aer.ad 2 PUFFS INHALATION Q4H PRN PRN For Shortness of Breath (Reported) oxyCODONE (oxyCODONE) 5 Mg Tablet 2.5-5 MG PO TID PRN PRN For Pain (Reported) Discontinued Medications Pramipexole Dihydrochloride (Pramipexole Dihydrochloride) 0.25 Mg Tablet 0.25 MG PO QID (Reported) oxyCODONE-Acetaminophen 5-325 mg (oxyCODONE-Acetaminophen 5-325 mg) 1 Each Tablet 1-2 TAB PO Q6H PRN PRN For Pain (Reported) Current Inpatient Medications Current Medications Metoprolol Tartrate 25 mg BID PO Last administered on 06/18/16at 09:25; Admin Dose 25 MG; Start 06/17/16 at 20:30; Stop 06/18/16 at 19:00; Status DC Dexbrompheniramine/ Guaifenesin 10 ml Q6H PRN PO Last administered on at 05:26; Admin Dose 10 ML; Start 06/18/16 at 09:55 Guaifenesin 1,200 mg Q12 PO Last administered on 06/19/16at 09:57; Admin Dose 1, 200 MG; Start 06/18/16 at 20:30 Furosemide 20 mg DAILY IVPUSH Last administered on 06/18/16at 17:35; Admin Dose 20 MG; Start 06/18/16 at 17:20; Stop 06/19/16 at 08:33; Status DC Potassium Chloride 20 meq DAILYWM PO Last administered on 06/19/16at 09:59; Admin Dose 20 MEQ; Start 06/18/16 at 17:20 Metoprolol Succinate 25 mg BID PO Last administered on 06/19/16at 09:58; Admin Dose 25 MG; Start 06/18/16 at 18:55; Stop 06/19/16 at 11:15; Status DC Pharmacy Consult 1 ea DAILY@17 XX; Start 06/18/16 at 18:55; Stop 06/19/16 at 11:10; Status DC Furosemide 40 mg DAILY IVPUSH Last administered on 06/19/16at 10:00; Admin Dose 40 MG; Start 06/19/16 at 08:38 Levalbuterol 1.25 mg Q4H PRN NEB; Start 06/19/16 at 09:30 Apixaban 5 mg BID PO Last administered on 06/19/16at 11:55; Admin Dose 5 MG; Start 06/19/16 at 11:11 Metoprolol Succinate 50 mg BID PO; Start 06/19/16 at 20:30 Allergies: Coded Allergies: acetaminophen (Verified Adverse Reaction, Intermediate, activates restless leg syndome, 06/16/16) Family History Family History Patient has two sons and one daughter, all of whom are healthy into their 50s. Social History Hx Alcohol Use: Yes (Rare social)Hx Substance Use: NoHx Tobacco Use: Yes (30 years of < 1/2 pack cigarettes per day) Smoking Status: Former Smoker (1/2 pack day for 30 yrs ) Living Arrangement: with Family Exam Vital Signs Vital Sign - Last Date Time Temp Pulse Resp B/P Pulse Ox O2 Delivery O2 Flow Rate FiO2 06/19/16 09:53 37.1 132 20 112/76 94 Nasal Cannula 3.00 Intake and Output 06/18/16 06/18/16 06/19/16 Cumulative From/Thru 15:00 23:00 07:00 06/16/16 16:44 - 06/19/16 06:02 Intake Total 400 ml 956 ml 5100 ml Output Total 300 ml 1000 ml 1400 ml Balance 100 ml -44 ml 3700 ml Intake Oral 400 ml 956 ml 1836 ml IV Total 3264 ml Output Urine Total 300 ml 1000 ml 1400 ml # Voids 1 3 # Bowel Movements 0 0 General appearance: No apparent distress, well-nourished, pleasant, cooperative HEET: Normocephalic atraumatic, no scleral icterus, tongue midline, mucous membranes moist Neck: supple Cardiovascular: irregularly irregular, normal S1 and normal S2, no murmurs/rubs/ gallops, PMI nondisplaced, JVP 11cm H20, 1+ peripheral edema Respiratory: Fair aeration, bibasilar crackles Abdomen: Soft, nontender, nondistended, + bowel sounds Neuro: Alert, no facial droop, tongue midline, no gross motor deficits Psych: appropriate affect Skin: no rashes on face, neck, and lower extremities Lab and Diagnostics Result Diagram: 06/19/1625 06/19/16 0525 X-Rays, CTs and MRIs CT chest 06/18/2016: 1. No pulmonary embolus. 2. Bibasilar lung opacities compatible with atelectasis versus pneumonia. Please correlate with clinical laboratory data. 3. Trace bilateral pleural effusions. 4. Cardiomegaly. 5. Bilateral hilar and mediastinal lymphadenopathy which could be reactive or neoplastic. Echo 06/18/2016: 1) Normal left ventricular thickness, size, wall motion, and systolic function ( EF 60-65%). 2) Normal right ventricular size and function. 3) Mild prolapse on the anterior leaflet of the mitral valve. 4) Mild posteriorly directed mitral regurgitation from the prolapse. 5) Moderately dilated left atrium. 6) Mildly enlarged ascending aorta (diameter 4.1cm). 7) Right sided volume overload present as noted on dilated IVC that collapses less than 50% with sniff test. 8) Compared to the Echo done 09/14/2012, atrial fibrllation is present and right sided filling pressure is higher on today's study. Assessment & Plan Assessment 75 yo W admitted with new onset atrial fibrillation and new onset diastolic heart failure: # Dyspnea from diastolic heart failure: patient is volume overload on exam. Suspect patient had decompensation due to atrial fibrillation and rapid ventricular response. Her dyspnea has improved with diuresis but she remains on oxygen. I spent significant time educating the patient about her condition and answered her and her 's questions. Plan: - Continue furosemide 40mg IV daily with redose PRN to get goal negative 1.5L in 24 hours - AF management as below # Persistent AF: etiology likely idiopathic. No history of HTN. TSH normal. Patient continues to have rapid ventricular response. I spent significant time educating the patient about her condition and answered her and her 's questions. Plan: - Increase metoprolol XL from 25mg bid to 50mg bid for better rate control - Start apixaban 5mg bid - Consider SAMEER with DCCV once patient euvolemic - Will consider rhythm control medication after ischemia evaluation # Mitral valve prolapse: prolapse involving the anterior leaflet. There appears to be mild mitral regurgitation. Will need monitoring as outpatient. # Former smoker: quit 2003. Patient congratulated on it. Pain Evaluation: Adequate Pain Control VTE Prophylaxis Indicated: Meets Criteria for Anticoag Therapy VTE Mechanical Devices: Intermittant Pneumatic CD Resuscitation Status: CPR: Attempt Resuscitation Ed Denton MD Jun 19, 2016 12:36
--- NOTE | 2016-06-19 15:25 | NUR ---
FARIDA Signed. RADHA Ayala
[2016-06-19] MEDS ORDERED: Furosemide 10 mg/mL 2 mL Inj IV ONE (16:30)
--- NOTE | 2016-06-19 18:02 | NUR ---
heart rhythm patient rhythm A-fib with a rate of 100-140's throughout shift. Dr Meadows and Dr Denton aware and have made adjustments to patient's medication. Even with the increase in Metoprolol dose to 50mg BID, rate still elevated and increases to 120-140's with activity. Patient diuresing well with 1250ml out on Day shift. Patient denies feeling SOB at rest, but having MONREAL. recovers quickly with rest. continue to monitor.
[2016-06-19] MEDS: MeTOProlol XL 50 mg ER24 Tablet PO SCH (20:36)
--- NOTE | 2016-06-19 22:21 | PCM.PNMED ---
Subjective Date of Service Jun 19, 2016 Subjective Patient is feeling a little bit better today. She still complains of cough fatigue and low-grade fever today, but overall feeling better. Exam Vital Signs Vital Sign - Last Date Time Temp Pulse Resp B/P Pulse Ox O2 Delivery O2 Flow Rate FiO2 06/19/16 21:07 36.5 131 22 137/80 95 Nasal Cannula 3.00 Intake and Output 06/18/16 06/18/16 06/19/16 Cumulative From/Thru 14:59 22:59 06:59 06/16/16 16:44 - 06/19/16 06:02 Intake Total 400 ml 956 ml 5100 ml Output Total 300 ml 1000 ml 1400 ml Balance 100 ml -44 ml 3700 ml Intake Oral 400 ml 956 ml 1836 ml IV Total 3264 ml Output Urine Total 300 ml 1000 ml 1400 ml # Voids 1 3 # Bowel Movements 0 0 Exam General: Patient is still coughing, however less today. Overall her appearance is much brighter. HEENT: Head is atraumatic normocephalic. Eyes: Pupils are equally round and reactive to light and accommodation. Extraocular muscles are intact. Sclera are white anicteric. Subconjunctival mucosa is pink. Ears and nose are unremarkable. Oropharynx: There are no mucosal lesions, there is no thrush, there is no pharyngitis. Neck: Is supple, there are no nodes, or masses or tenderness. Chest: There is decreased breath sounds at the left base or so than the right base. There are now decreased rales heard at the bases bilaterally. There are no rhonchi, wheezes or rubs. Heart: Rate is uncontrolled, rhythm is irregular. There is no murmur, rub or gallop appreciated although heart tones are distant. Abdomen: Good bowel sounds are present. Abdomen is obese, soft, nontender, no organomegaly or masses were appreciated. Extremities: Are symmetrical and well perfused. There is no edema, there is no cellulitis, no rash. Neurologic: There are no focal neurological deficits. Cranial nerves II through XII are intact. There are no sensory or motor deficits. Psychiatric: Patients mood is calm and shows no sign of significant agitation. Genital: Deferred Rectal: Deferred Lab and Diagnostics Result Diagram: 06/19/16 0525 06/19/1625 X-Rays, CTs and MRIs Patient Name: CAITLIN FRASER MR#: [id number] Location: [facility] [place] Ordering Phys: SALINA NELSON MD Date of Service: 06/16/161657 PROCEDURE: X-RAY CHEST ONE VIEW, PORTABLE ([id number]) INDICATIONS: A FIB, COUGH TECHNIQUE: One view of the chest was acquired. COMPARISON: [facility], CR, XR CHEST 2V AP/PA AND LAT, 04/28/2016 , 10:50 AM. [facility], CR, CHEST 1VW (PORTABLE), 03/19/2014, 12:08. FINDINGS: Surgical changes and devices: None. Lungs and pleura: No pleural effusions or pneumothorax. Moderate patchy left basilar airspace opacity. Mediastinum: Mediastinal contours appear normal. Heart size is normal. Bones and chest wall: No suspicious bony lesions. Overlying soft tissues appear unremarkable. IMPRESSION: Left basilar pneumonia. Continued plain film surveillance is recommended to ensure resolution, and to exclude underlying or central malignancy. Dictated by: Angelika Osorio M.D. on 06/16/2016 at 17:40 Approved by: Angelika Osorio M.D. on 06/16/2016 at 17:40 PROCEDURE: CT ANGIO CHEST PULMONARY EMBOLISM ([id number]) INDICATIONS: Chest discomfort and SOB and Cough/Possible PE TECHNIQUE: After the administration of intravenous contrast, 2 mm thick sections acquired from the pulmonary apices to the posterior costophrenic angles. 3-dimensional maximum intensity projection (MIP) coronal and sagittal reformats were then acquired through the thorax. For radiation dose reduction, the following was used: automated exposure control, adjustment of mA and/or kV according to patient size. COMPARISON: [facility], CR, XR CHEST 1VW (PORTABLE), 06/16/2016, 16 :59. FINDINGS: Image quality: Excellent. Pulmonary arteries: Pulmonary arteries are normal in size, and demonstrate no intraluminal filling defects to suggest central pulmonary embolism. Lungs and pleura: Focal opacity noted in the right lower lobe which could represent atelectasis versus pneumonia. Patchy opacity noted in the left lung base suspicious for pneumonia. Trace bilateral pleural fluid collections are noted. Central and peripheral airways are patent. Mediastinum: Heart size is enlarged, without pericardial effusion. Prominent bilateral hilar and mediastinal lymph nodes are noted which could be reactive or neoplastic. Thoracic aorta is normal in caliber and enhancement. Esophagus is normal in caliber, without hiatal hernia. Bones and chest wall: Multiple surgical clips noted in the breasts bilaterally. No suspicious bony lesions. Ribs and thoracic spine appear intact throughout. Thyroid gland is within normal limits. No axillary or supraclavicular adenopathy. Abdomen: Visualized upper abdominal solid organs appear normal in the early arterial phase of enhancement. IMPRESSION: 1. No pulmonary embolus. 2. Bibasilar lung opacities compatible with atelectasis versus pneumonia. Please correlate with clinical laboratory data. 3. Trace bilateral pleural effusions. 4. Cardiomegaly. 5. Bilateral hilar and mediastinal lymphadenopathy which could be reactive or neoplastic. Dictated by: Abigail Ty MD, PhD on 06/18/2016 at 15:50 Approved by: Abigail Ty MD, PhD on 06/18/2016 at 15:50 12-lead ECG RVR a fib at 138 otherwise no abnormality. Cardiac Echo Impressions Echocardiogram Report Name: CAITLIN FRASER MStudy Date: 06/18/2016 Height: 62 in Hospital Exam Location: [facility] Weight: 181 lb Gender: Female BSA: 1.8 m2 : 1940 Age: 75 yrs BP: 135/91 mmHg Reason For Study: Atrial fibrillation Ordering Physician: Performed By: Richa Diamond Referring Physician: Sj Godfrey Interpretation Summary 1) Normal left ventricular thickness, size, wall motion, and systolic function (EF 60-65%). 2) Normal right ventricular size and function. 3) Mild prolapse on the anterior leaflet of the mitral valve. 4) Mild posteriorly directed mitral regurgitation from the prolapse. 5) Moderately dilated left atrium. 6) Mildly enlarged ascending aorta (diameter 4.1cm). 7) Right sided volume overload present as noted on dilated IVC that collapses less than 50% with sniff test. 8) Compared to the Echo done 09/14/2012, atrial fibrllation is present and right sided filling pressure is higher on today's study. Assessment & Plan This is a 75-year-old female who presents with history over the past 2 days of worsening cough. She notes a productive she denies any fevers or chills. Does have malaise with this. No recent sick contacts. He does over the past several months have a cough has been evaluated by pulmonary provider and thought that it was related to acid reflux. He denies any head congestion or postnasal drainage. She denies any wheezing. She does feel like she has some chest tightness with coughing. Denies any abdominal pain. Denies any nausea or vomiting. Denies any alteration in bowel movements. Upon presentation she was found to be in RVR A. fib. Has no known history of this. She initially was seen in urgent care and because of this was sent over to the emergency room. # Bilateral lower lobe pneumonia versus atelectasis, present on admission as seen on CT scan -We continue incentive spirometry -Sputum culture not available as there is no specimen as patient is unable to expectorate one. -No droplet precautions as results of respiratory viral PCR are negative -Continue on IV Rocephin and azithromycin IV -Albuterol nebs changed to Xopenex due to tachycardia when necessary for wheezing # RVR A. fib, new onset, present on admission and ongoing - Continue increased dose of metoprolol 25 mg by mouth twice a day (from 12.5 mg by mouth twice a day) day #1. -This afternoon 06/18/2016 patient will require another dose of IV metoprolol 2.5 mg. -TSH is normal -Check serial cardiac enzymes which are negative so far. -[id number] is 4-[address] on therapeutic lovenox and Coumadin per pharmacy dosing. I suspect patient is going to require long-term anticoagulation, Dr. Ruffin has recommended Apixaban. Therefore we may discontinue Lovenox and Coumadin. -Continue on telemetry. Repeat EKG in a.m. -I have obtained cardiology consultation with Dr. Greene and his recommendations are as follows: "75 yo W admitted with new onset atrial fibrillation and new onset diastolic heart failure: # Dyspnea from diastolic heart failure: patient is volume overload on exam. Suspect patient had decompensation due to atrial fibrillation and rapid ventricular response. Her dyspnea has improved with diuresis but she remains on oxygen. I spent significant time educating the patient about her condition and answered her and her 's questions. Plan: - Continue furosemide 40mg IV daily with redose PRN to get goal negative 1.5L in 24 hours - AF management as below # Persistent AF: etiology likely idiopathic. No history of HTN. TSH normal. Patient continues to have rapid ventricular response. I spent significant time educating the patient about her condition and answered her and her 's questions. Plan: - Increase metoprolol XL from 25mg bid to 50mg bid for better rate control - Start apixaban 5mg bid - Consider SAMEER with DCCV once patient euvolemic - Will consider rhythm control medication after ischemia evaluation" Appreciate cardiology consultation and Dr. Ruffin's input. I discussed case with him at length. # DVT prophylaxis Patient was on therapeutic Lovenox now Apixaban 5 mg twice a day has been started # CODE STATUS Patient is full code. # Discussed with patient's at length. Pain Evaluation: Adequate Pain Control GI Prophylaxis: H2 biju VTE Mechanical Devices: Intermittant Pneumatic CD Resuscitation Status: CPR: Attempt Resuscitation Aubrey Meadows MD Jun 19, 2016 22:21
[2016-06-20] VITALS (11 sets, daily range): BP systolic 108–117; BP diastolic 42–82; PULSE 75–130; RESP 18–20; O2SAT 94–98
--- NOTE | 2016-06-20 01:28 | NUR ---
Afib RVR Pt's HR in the 130s persistently.Ministerio Reported findings to Received order for IV metoprolol. Will cont to monitor
[2016-06-20] MEDS ORDERED: MeTOProlol 1 mg/mL 5 mL Inj IV ONE (01:30)
[2016-06-20 06:07] LABS: BASOPHILS % (AUTO) 0.3 % (0-3); EOSINOPHILS % (AUTO) 2.5 % (0-5); MONOCYTES % (AUTO) 16.9 % (4-12); Mean Corpuscular Hemoglobin 32.4 pg (27.0-35.0); NEUTROPHILS % (AUTO) 66.2 % (40-74); Platelet Count 284 bil/L (150-400)
--- NOTE | 2016-06-20 06:09 | NUR ---
Afib Pt's heart rate currently in the 130s and then drops to the 110-120 range. Pt is asymptomatic. BP stable Will cont to monitor
[2016-06-20 06:50] LABS: INR 1.05 ratio
[2016-06-20] MEDS: Potassium Chloride 20 mEq SR Tablet PO SCH (08:47)
[2016-06-20] MEDS: Furosemide 10 mg/mL 2 mL Inj IVPUSH SCH (08:47)
[2016-06-20] MEDS: guaiFENesin 600 mg ER12 Tablet PO SCH ×2 (08:47→20:38)
[2016-06-20] MEDS: cefTRIAXone Inj 2,000 MG in IV Premix 1 EACH IV SCH (08:48)
[2016-06-20] MEDS: MeTOProlol XL 50 mg ER24 Tablet PO SCH ×2 (09:56→20:40)
[2016-06-20] MEDS: Azithromycin Inj 500 MG in Dextrose 5% w/Vial Mate 250 ML IV SCH (09:57)
[2016-06-20] MEDS ORDERED: MeTOProlol XL 50 mg ER24 Tablet PO ONE (10:10)
--- NOTE | 2016-06-20 10:37 | NUR ---
Social Work-continued d/c planning: Data:EMR reviewed. Pt is on day 4 of hospitalization for new onset AFIB per H&P. Per MD, pt will likely be hospitalized for several more days. Pt resides at home with her spouse where she remains independent with ADLS. Per RN notes, pt has been up independent in her room. SW confirmed plan with pt, home no needs. Pt states her will provide transport home at discharge. Assessment:Pt who is independent at baseline. Plan:Pt to discharge home when medically stable via POV. No anticipated discharge needs. SW will continue to follow if needs arise. RADHA Ayala
--- NOTE | 2016-06-20 11:19 | PCM.PNCARD ---
Subjective Date of service Jun 20, 2016 Chief Complaint dyspnea History of Present Illness 75 yo h/o bilateral breast cancer s/p lumpectomy, radiation, and chemo in 2009 and 2012 and otherwise healthy admitted with dyspnea. Patient states that she could walk about a mile at her baseline without much difficulty. About 3 months ago, patient developed a cough and has had gradual worsening of her dyspnea to the degree that she cannot breathe well even at rest. In the ER, she was noted to be in atrial fibrillation with rapid ventricular response. Further investigations revealed bilateral lower lobe infiltrate that was initially felt to be from pneumonia and treated with antibiotics but patient did not improve. Echocardiogram done yesterday showed hypervolemia with normal left ventricular function. She received furosemide 20 mg IV times one yesterday and felt a little bit better today. Her dose was increased to 40 mg IV today and she feels even better and remains on oxygen. Denies fevers, chills, nausea, or vomiting. She does get chest pain that is related to her cough. Subjective: In the past 24 hours, she had reasonable urine output and is negative 500cc. She feels about the same as yesterday from breathing standpoint. PROBLEM LIST: # HFpEF (diastolic heart failure) # Persistent atrial fibrillation # Mitral valve prolapse with mild mitral regurgitation # Bilteral breast cancer s/p lumpectomy, radiation, and chemo in 2009 and 2012 # Former smoker: quit 2003 Exam Vital Signs Vital Sign - Last Date Time Temp Pulse Resp B/P Pulse Ox O2 Delivery O2 Flow Rate FiO2 06/20/16 09:25 37.1 84 20 117/64 94 Nasal Cannula 3.00 Intake and Output 06/19/16 06/19/16 06/20/16 Cumulative From/Thru 15:00 23:00 07:00 06/16/16 16:44 - 06/20/16 05:22 Intake Total 200 ml 886 ml 400 ml 6586 ml Output Total 400 ml 1250 ml 650 ml 3700 ml Balance -200 ml -364 ml -250 ml 2886 ml Intake Oral 200 ml 836 ml 400 ml 3272 ml IV Total 50 ml 3314 ml Output Urine Total 400 ml 1250 ml 650 ml 3700 ml # Voids 3 # Bowel Movements 1 1 General appearance: No apparent distress, well-nourished, pleasant, cooperative HEET: Normocephalic atraumatic, no scleral icterus, tongue midline, mucous membranes moist Neck: supple Cardiovascular: irregularly irregular, normal S1 and normal S2, no murmurs/rubs/ gallops, PMI nondisplaced, JVP 10cm H20, trace peripheral edema Respiratory: Fair aeration, bibasilar crackles Abdomen: Soft, nontender, nondistended, + bowel sounds Neuro: Alert, no facial droop, tongue midline, no gross motor deficits Psych: appropriate affect Skin: no rashes on face, neck, and lower extremities Lab and Diagnostics Result Diagram: 06/20/16 0550 06/20/16 0550 X-Rays, CTs and MRIs CT chest 06/18/2016: 1. No pulmonary embolus. 2. Bibasilar lung opacities compatible with atelectasis versus pneumonia. Please correlate with clinical laboratory data. 3. Trace bilateral pleural effusions. 4. Cardiomegaly. 5. Bilateral hilar and mediastinal lymphadenopathy which could be reactive or neoplastic. Echo 06/18/2016: 1) Normal left ventricular thickness, size, wall motion, and systolic function ( EF 60-65%). 2) Normal right ventricular size and function. 3) Mild prolapse on the anterior leaflet of the mitral valve. 4) Mild posteriorly directed mitral regurgitation from the prolapse. 5) Moderately dilated left atrium. 6) Mildly enlarged ascending aorta (diameter 4.1cm). 7) Right sided volume overload present as noted on dilated IVC that collapses less than 50% with sniff test. 8) Compared to the Echo done 09/14/2012, atrial fibrllation is present and right sided filling pressure is higher on today's study. Assessment & Plan Assessment 75 yo W admitted with new onset atrial fibrillation and new onset diastolic heart failure: # Dyspnea from diastolic heart failure: patient is volume overload on exam. Suspect patient had decompensation due to atrial fibrillation and rapid ventricular response. Her dyspnea has improved with diuresis but she remains on oxygen. I spent significant time educating the patient about her condition and answered her and her 's questions. Plan: - Continue furosemide 40mg IV daily with redose PRN to get goal negative 1L in 24 hours - AF management as below # Persistent AF: etiology likely idiopathic. No history of HTN. TSH normal. Patient continues to have rapid ventricular response. I spent significant time educating the patient about her condition and answered her and her 's questions. Plan: - Increase metoprolol XL from 50mg bid to 200mg qhs - Continue apixaban 5mg bid - Consider SAMEER with DCCV once patient euvolemic - Will consider rhythm control medication after ischemia evaluation # Mitral valve prolapse: prolapse involving the anterior leaflet. There appears to be mild mitral regurgitation. Will need monitoring as outpatient. # Former smoker: quit 2003. Patient congratulated on it. Problems: Pain Evaluation: Adequate Pain Control GI Prophylaxis: H2 biju VTE Mechanical Devices: Intermittant Pneumatic CD Resuscitation Status: CPR: Attempt Resuscitation Ed Denton MD Jun 20, 2016 11:19
[2016-06-20] MEDS ORDERED: Furosemide 10 mg/mL 4 mL Inj IVPUSH ONE (15:15)
--- NOTE | 2016-06-20 17:31 | PCM.PNMED ---
Subjective Date of Service Jun 20, 2016 Subjective Patient is feeling a little bit better. However, she is still having some significant amount of cough, and shortness of breath. She relates no fever today. No diaphoresis, no chills, no nausea and no diarrhea Exam Vital Signs Vital Sign - Last Date Time Temp Pulse Resp B/P Pulse Ox O2 Delivery O2 Flow Rate FiO2 06/20/16 16:41 Supplement Oxygen 06/20/16 14:08 36.7 124 20 112/72 95 3.00 Intake and Output 06/19/16 06/19/16 06/20/16 Cumulative From/Thru 15:00 23:00 07:00 06/16/16 16:44 - 06/20/16 05:22 Intake Total 200 ml 886 ml 400 ml 6586 ml Output Total 400 ml 1250 ml 650 ml 3700 ml Balance -200 ml -364 ml -250 ml 2886 ml Intake Oral 200 ml 836 ml 400 ml 3272 ml IV Total 50 ml 3314 ml Output Urine Total 400 ml 1250 ml 650 ml 3700 ml # Voids 3 # Bowel Movements 1 1 Exam General: Patient is still coughing, however less today. Overall her appearance continues to be much brighter. HEENT: Head is atraumatic normocephalic. Eyes: Pupils are equally round and reactive to light and accommodation. Extraocular muscles are intact. Sclera are white anicteric. Subconjunctival mucosa is pink. Ears and nose are unremarkable. Oropharynx: There are no mucosal lesions, there is no thrush, there is no pharyngitis. Neck: Is supple, there are no nodes, or masses or tenderness. Chest: There is decreased breath sounds at the left base, more so than the right base. However, there is better air movement and clearing of the adventitious sounds at the bases.. There are no rhonchi, wheezes or rubs. Heart: Rate is uncontrolled, rhythm is irregular. There is no murmur, rub or gallop appreciated although heart tones are distant. Abdomen: Good bowel sounds are present. Abdomen is obese, soft, nontender, no organomegaly or masses were appreciated. Extremities: Are symmetrical and well perfused. There is no edema, there is no cellulitis, no rash. Neurologic: There are no focal neurological deficits. Cranial nerves II through XII are intact. There are no sensory or motor deficits. Psychiatric: Patients mood is calm and shows no sign of significant agitation. Genital: Deferred Rectal: Deferred Lab and Diagnostics Result Diagram: 06/20/16 0550 06/20/16 0550 X-Rays, CTs and MRIs Patient Name: CAITLIN FRASER MR#: [id number] [place] [facility] [place] Phys: SALINA NELSON MD Date of Service: 06/16/16 0524 PROCEDURE: X-RAY CHEST ONE VIEW, PORTABLE ([id number]) INDICATIONS: A FIB, COUGH TECHNIQUE: One view of the chest was acquired. COMPARISON: [facility], CR, XR CHEST 2V AP/PA AND LAT, 04/28/2016 , 10:50 AM. [facility], CR, CHEST 1VW (PORTABLE), 03/19/2014, 12:08. FINDINGS: Surgical changes and devices: None. Lungs and pleura: No pleural effusions or pneumothorax. Moderate patchy left basilar airspace opacity. Mediastinum: Mediastinal contours appear normal. Heart size is normal. Bones and chest wall: No suspicious bony lesions. Overlying soft tissues appear unremarkable. IMPRESSION: Left basilar pneumonia. Continued plain film surveillance is recommended to ensure resolution, and to exclude underlying or central malignancy. Dictated by: Angelika Osorio M.D. on 06/16/2016 at 17:40 Approved by: Angelika Osorio M.D. on 06/16/2016 at 17:40 PROCEDURE: CT ANGIO CHEST PULMONARY EMBOLISM ([id number]) INDICATIONS: Chest discomfort and SOB and Cough/Possible PE TECHNIQUE: After the administration of intravenous contrast, 2 mm thick sections acquired from the pulmonary apices to the posterior costophrenic angles. 3-dimensional maximum intensity projection (MIP) coronal and sagittal reformats were then acquired through the thorax. For radiation dose reduction, the following was used: automated exposure control, adjustment of mA and/or kV according to patient size. COMPARISON: [facility], CR, XR CHEST 1VW (PORTABLE), 06/16/2016, 16 :59. FINDINGS: Image quality: Excellent. Pulmonary arteries: Pulmonary arteries are normal in size, and demonstrate no intraluminal filling defects to suggest central pulmonary embolism. Lungs and pleura: Focal opacity noted in the right lower lobe which could represent atelectasis versus pneumonia. Patchy opacity noted in the left lung base suspicious for pneumonia. Trace bilateral pleural fluid collections are noted. Central and peripheral airways are patent. Mediastinum: Heart size is enlarged, without pericardial effusion. Prominent bilateral hilar and mediastinal lymph nodes are noted which could be reactive or neoplastic. Thoracic aorta is normal in caliber and enhancement. Esophagus is normal in caliber, without hiatal hernia. Bones and chest wall: Multiple surgical clips noted in the breasts bilaterally. No suspicious bony lesions. Ribs and thoracic spine appear intact throughout. Thyroid gland is within normal limits. No axillary or supraclavicular adenopathy. Abdomen: Visualized upper abdominal solid organs appear normal in the early arterial phase of enhancement. IMPRESSION: 1. No pulmonary embolus. 2. Bibasilar lung opacities compatible with atelectasis versus pneumonia. Please correlate with clinical laboratory data. 3. Trace bilateral pleural effusions. 4. Cardiomegaly. 5. Bilateral hilar and mediastinal lymphadenopathy which could be reactive or neoplastic. Dictated by: Abigail Ty MD, PhD on 06/18/2016 at 15:50 Approved by: Abigail Ty MD, PhD on 06/18/2016 at 15:50 12-lead ECG RVR a fib at 138 otherwise no abnormality. Cardiac Echo Impressions Echocardiogram Report Name: CAITLIN FRASER MStudy Date: 06/18/2016 Height: 62 in Hospital Exam Location: [facility] Weight: 181 lb Gender: Female BSA: 1.8 m2 : 1940 Age: 75 yrs BP: 135/91 mmHg Reason For Study: Atrial fibrillation Ordering Physician: Performed By: Richa Diamond Referring Physician: Sj Godfrey Interpretation Summary 1) Normal left ventricular thickness, size, wall motion, and systolic function (EF 60-65%). 2) Normal right ventricular size and function. 3) Mild prolapse on the anterior leaflet of the mitral valve. 4) Mild posteriorly directed mitral regurgitation from the prolapse. 5) Moderately dilated left atrium. 6) Mildly enlarged ascending aorta (diameter 4.1cm). 7) Right sided volume overload present as noted on dilated IVC that collapses less than 50% with sniff test. 8) Compared to the Echo done 09/14/2012, atrial fibrllation is present and right sided filling pressure is higher on today's study. Assessment & Plan This is a 75-year-old female who presents with history over the past 2 days of worsening cough. She notes a productive she denies any fevers or chills. Does have malaise with this. No recent sick contacts. He does over the past several months have a cough has been evaluated by pulmonary provider and thought that it was related to acid reflux. He denies any head congestion or postnasal drainage. She denies any wheezing. She does feel like she has some chest tightness with coughing. Denies any abdominal pain. Denies any nausea or vomiting. Denies any alteration in bowel movements. Upon presentation she was found to be in RVR A. fib. Has no known history of this. She initially was seen in urgent care and because of this was sent over to the emergency room. # Bilateral lower lobe pneumonia versus atelectasis, present on admission as seen on CT scan -We will continue incentive spirometry -Sputum culture not available as there is no specimen as patient is unable to expectorate one. -No droplet precautions as results of respiratory viral PCR are negative -Continue on IV Rocephin and azithromycin IV day #4 -Albuterol nebs changed to Xopenex, due to tachycardia, and will use when necessary for wheezing # RVR A. fib, new onset, present on admission and ongoing - Cardiology has increased the metoprolol succinate 200 mg by mouth daily at bedtime -TSH is normal -Serial cardiac enzymes are negative so far. -[id number] is 4-[address] on therapeutic lovenox and Coumadin per pharmacy dosing. I suspect patient is going to require long-term anticoagulation, Dr. Ruffin has recommended Apixaban. Therefore we may discontinue Lovenox and Coumadin. -Continue on telemetry. Repeat EKG in a.m. -I have obtained cardiology consultation with Dr. Greene and his recommendations are as follows: "75 yo W admitted with new onset atrial fibrillation and new onset diastolic heart failure: # Dyspnea from diastolic heart failure: patient is volume overload on exam. Suspect patient had decompensation due to atrial fibrillation and rapid ventricular response. Her dyspnea has improved with diuresis but she remains on oxygen. I spent significant time educating the patient about her condition and answered her and her 's questions. Plan: - Continue furosemide 40mg IV daily with redose PRN to get goal negative 1L in 24 hours - AF management as below # Persistent AF: etiology likely idiopathic. No history of HTN. TSH normal. Patient continues to have rapid ventricular response. I spent significant time educating the patient about her condition and answered her and her 's questions. Plan: - Increase metoprolol XL from 50mg bid to 200mg qhs - Continue apixaban 5mg bid - Consider SAMEER with DCCV once patient euvolemic - Will consider rhythm control medication after ischemia evaluation # Mitral valve prolapse: prolapse involving the anterior leaflet. There appears to be mild mitral regurgitation. Will need monitoring as outpatient." Appreciate cardiology consultation and Dr. Ruffin's input. I discussed case with him at length. # DVT prophylaxis Patient was on therapeutic Lovenox now Apixaban 5 mg twice a day has been started # CODE STATUS Patient is full code. # Discussed with patient's at length. Pain Evaluation: Adequate Pain Control GI Prophylaxis: H2 biju VTE Mechanical Devices: Intermittant Pneumatic CD Resuscitation Status: CPR: Attempt Resuscitation Aubrey Meadows MD Jun 20, 2016 17:31
--- NOTE | 2016-06-20 17:31 | NUR ---
A-fib/Respiratory patient remains in A-fib with resting heart rate 110-120's, increasing to 103-140's with activity despite the increase in her metoprolol dose. Dr Denton and Dr Meadows both aware. patient still reports some dyspnea with activity; getting up to restroom. Lung sounds should faint rales lateral and posterior bilaterally with slight expiratory wheezing. Diuresing well with 1150ml out on day shift. encouraged deep breathing and cough exercises and IS every hour while awake. patient agrees with plan of care.
--- NOTE | 2016-06-20 22:23 | NUR ---
Cough Pt's cough is noted when she starts to talk. It is difficult for her to finish sentences. If the pt is not talking, her cough is not as irritating. The pt states that Robitussin did not help. Lungs are CTA. Some crackles noted in the LLL. Will cont to monitor
[2016-06-21] VITALS (8 sets, daily range): BP systolic 90–121; BP diastolic 58–87; PULSE 63–127; RESP 18–20; O2SAT 93–97
[2016-06-21 06:18] LABS: BASOPHILS % (AUTO) 0.3 % (0-3); EOSINOPHILS % (AUTO) 1.5 % (0-5); MONOCYTES % (AUTO) 14.8 % (4-12); Mean Corpuscular Hemoglobin 32.8 pg (27.0-35.0); Mean Corpuscular Volume 99.7 fL (81-100); NEUTROPHILS % (AUTO) 68.6 % (40-74); Platelet Count 354 bil/L (150-400)
--- NOTE | 2016-06-21 06:21 | NUR ---
Heart rate Afib remains in the 115-130 range. Pt states she "feels better". VS stable Will cont to monitor
[2016-06-21 06:29] LABS: INR 1.08 ratio
[2016-06-21] MEDS: Azithromycin Inj 500 MG in Dextrose 5% w/Vial Mate 250 ML IV SCH (08:13)
[2016-06-21] MEDS: Potassium Chloride 20 mEq SR Tablet PO SCH (08:15)
[2016-06-21] MEDS: Furosemide 10 mg/mL 2 mL Inj IVPUSH SCH (08:15)
[2016-06-21] MEDS: guaiFENesin 600 mg ER12 Tablet PO SCH ×2 (08:15→22:21)
[2016-06-21] MEDS ORDERED: 0.9% Sodium Chloride 100 ML ONE (08:32)
[2016-06-21] MEDS: cefTRIAXone Inj 2,000 MG in IV Premix 1 EACH IV SCH (10:01)
[2016-06-21] MEDS ORDERED: Furosemide 10 mg/mL 4 mL Inj IVPUSH ONE ×2 (11:35→19:25)
--- NOTE | 2016-06-21 12:01 | PCM.PNCARD ---
Subjective Date of service Jun 21, 2016 Chief Complaint dyspnea History of Present Illness 75 yo h/o bilateral breast cancer s/p lumpectomy, radiation, and chemo in 2009 and 2012 and otherwise healthy admitted with dyspnea. Patient states that she could walk about a mile at her baseline without much difficulty. About 3 months ago, patient developed a cough and has had gradual worsening of her dyspnea to the degree that she cannot breathe well even at rest. In the ER, she was noted to be in atrial fibrillation with rapid ventricular response. Further investigations revealed bilateral lower lobe infiltrate that was initially felt to be from pneumonia and treated with antibiotics but patient did not improve. Echocardiogram done yesterday showed hypervolemia with normal left ventricular function. She received furosemide 20 mg IV times one yesterday and felt a little bit better today. Her dose was increased to 40 mg IV today and she feels even better and remains on oxygen. Denies fevers, chills, nausea, or vomiting. She does get chest pain that is related to her cough. Subjective: In the past 24 hours, she had reasonable urine output with IV furosemide 40mg X2 yesterday. She continues to have cough with prolonged talking but this has improved significantly since admission. PROBLEM LIST: # HFpEF (diastolic heart failure) # Persistent atrial fibrillation # Mitral valve prolapse with mild mitral regurgitation # Bilteral breast cancer s/p lumpectomy, radiation, and chemo in 2009 and 2012 # Former smoker: quit 2003 Exam Vital Signs Vital Sign - Last Date Time Temp Pulse Resp B/P Pulse Ox O2 Delivery O2 Flow Rate FiO2 06/21/16 10:56 36.8 105 18 99/64 97 Nasal Cannula 8.00 Intake and Output 06/20/16 06/20/16 06/21/16 Cumulative From/Thru 15:00 23:00 07:00 06/16/16 16:44 - 06/21/16 04:49 Intake Total 1172 ml 400 ml 8158 ml Output Total 1150 ml 600 ml 5450 ml Balance 22 ml -200 ml 2708 ml Intake Oral 872 ml 400 ml 4544 ml IV Total 300 ml 3614 ml Output Urine Total 1150 ml 600 ml 5450 ml # Voids 3 # Bowel Movements 0 1 General appearance: No apparent distress, well-nourished, pleasant, cooperative HEET: Normocephalic atraumatic, no scleral icterus, tongue midline, mucous membranes moist Neck: supple Cardiovascular: irregularly irregular, normal S1 and normal S2, no murmurs/rubs/ gallops, PMI nondisplaced, JVP 10cm H20, trace peripheral edema Respiratory: Fair aeration, bibasilar crackles (improved over the past couple of days) Abdomen: Soft, nontender, nondistended, + bowel sounds Neuro: Alert, no facial droop, tongue midline, no gross motor deficits Psych: appropriate affect Skin: no rashes on face, neck, and lower extremities Lab and Diagnostics Result Diagram: 06/21/1635 06/21/16534 X-Rays, CTs and MRIs CT chest 06/18/2016: 1. No pulmonary embolus. 2. Bibasilar lung opacities compatible with atelectasis versus pneumonia. Please correlate with clinical laboratory data. 3. Trace bilateral pleural effusions. 4. Cardiomegaly. 5. Bilateral hilar and mediastinal lymphadenopathy which could be reactive or neoplastic. Echo 06/18/2016: 1) Normal left ventricular thickness, size, wall motion, and systolic function ( EF 60-65%). 2) Normal right ventricular size and function. 3) Mild prolapse on the anterior leaflet of the mitral valve. 4) Mild posteriorly directed mitral regurgitation from the prolapse. 5) Moderately dilated left atrium. 6) Mildly enlarged ascending aorta (diameter 4.1cm). 7) Right sided volume overload present as noted on dilated IVC that collapses less than 50% with sniff test. 8) Compared to the Echo done 09/14/2012, atrial fibrllation is present and right sided filling pressure is higher on today's study. Assessment & Plan Assessment 75 yo W admitted with new onset atrial fibrillation and new onset diastolic heart failure: # Dyspnea from diastolic heart failure: patient is volume overload on exam. Suspect patient had decompensation due to atrial fibrillation and rapid ventricular response. Her dyspnea has improved with diuresis but she remains on oxygen. I spent significant time educating the patient about her condition and answered her and her 's questions. Plan: - Continue furosemide 40mg IV daily with redose PRN to get goal negative 1L in 24 hours - AF management as below # Persistent AF: etiology likely idiopathic. No history of HTN. TSH normal. Patient continues to have rapid ventricular response but it has improved with uptitration of metoprolol. I spent significant time educating the patient about her condition and answered her and her 's questions. Plan: - Continue metoprolol XL 200mg qhs - Continue apixaban 5mg bid - SAMEER with DCCV tomorrow - Will start amiodarone 400mg bid short term and then consider residential rhythm control medication after ischemia evaluation # Mitral valve prolapse: prolapse involving the anterior leaflet. There appears to be mild mitral regurgitation. Will need monitoring as outpatient. # Former smoker: quit 2003. Patient congratulated on it. Problems: Pain Evaluation: Adequate Pain Control GI Prophylaxis: H2 biju VTE Mechanical Devices: Intermittant Pneumatic CD Resuscitation Status: CPR: Attempt Resuscitation Ed Denton MD Jun 21, 2016 12:01
--- NOTE | 2016-06-21 17:23 | PCM.PNMED ---
Subjective Date of Service Jun 21, 2016 Subjective Patient feels about the same today she did yesterday. Overall however, she admits that she is feeling better. Exam Vital Signs Vital Sign - Last Date Time Temp Pulse Resp B/P Pulse Ox O2 Delivery O2 Flow Rate FiO2 06/21/16 15:59 Supplement Oxygen 06/21/16 15:47 36.9 91 18 90/58 95 3.00 Intake and Output 06/20/16 06/20/16 06/21/16 Cumulative From/Thru 15:00 23:00 07:00 06/16/16 16:44 - 06/21/16 04:49 Intake Total 1172 ml 400 ml 8158 ml Output Total 1150 ml 600 ml 5450 ml Balance 22 ml -200 ml 2708 ml Intake Oral 872 ml 400 ml 4544 ml IV Total 300 ml 3614 ml Output Urine Total 1150 ml 600 ml 5450 ml # Voids 3 # Bowel Movements 0 1 Exam General: Patient is still coughing, but appears more comfortable. HEENT: Head is atraumatic normocephalic. Eyes: Pupils are equally round and reactive to light and accommodation. Extraocular muscles are intact. Sclera are white anicteric. Subconjunctival mucosa is pink. Ears and nose are unremarkable. Oropharynx: There are no mucosal lesions, there is no thrush, there is no pharyngitis. Neck: Is supple, there are no nodes, or masses or tenderness. Chest: The lungs are almost completely clear. There are no rhonchi, wheezes or rubs. Heart: Rate is uncontrolled, but improved, rhythm is irregular. There is no murmur, rub or gallop appreciated although heart tones are distant. Abdomen: Good bowel sounds are present. Abdomen is obese, soft, nontender, no organomegaly or masses were appreciated. Extremities: Are symmetrical and well perfused. There is no edema, there is no cellulitis, no rash. Neurologic: There are no focal neurological deficits. Cranial nerves II through XII are intact. There are no sensory or motor deficits. Psychiatric: Patients mood is calm and shows no sign of significant agitation. Genital: Deferred Rectal: Deferred Lab and Diagnostics Result Diagram: 06/21/16 0535 06/21/16 0535 X-Rays, CTs and MRIs Patient Name: CAITLIN FRASER MR#: [id number] Location: [facility]: SALINA NELSON MD Date of Service: 06/16/16 9515 PROCEDURE: X-RAY CHEST ONE VIEW, PORTABLE ([id number]) INDICATIONS: A FIB, COUGH TECHNIQUE: One view of the chest was acquired. COMPARISON: [facility], CR, XR CHEST 2V AP/PA AND LAT, 04/28/2016 , 10:50 AM. [facility], CR, CHEST 1VW (PORTABLE), 03/19/2014, 12:08. FINDINGS: Surgical changes and devices: None. Lungs and pleura: No pleural effusions or pneumothorax. Moderate patchy left basilar airspace opacity. Mediastinum: Mediastinal contours appear normal. Heart size is normal. Bones and chest wall: No suspicious bony lesions. Overlying soft tissues appear unremarkable. IMPRESSION: Left basilar pneumonia. Continued plain film surveillance is recommended to ensure resolution, and to exclude underlying or central malignancy. Dictated by: Angelika Osorio M.D. on 06/16/2016 at 17:40 Approved by: Angelika Osorio M.D. on 06/16/2016 at 17:40 PROCEDURE: CT ANGIO CHEST PULMONARY EMBOLISM ([id number]) INDICATIONS: Chest discomfort and SOB and Cough/Possible PE TECHNIQUE: After the administration of intravenous contrast, 2 mm thick sections acquired from the pulmonary apices to the posterior costophrenic angles. 3-dimensional maximum intensity projection (MIP) coronal and sagittal reformats were then acquired through the thorax. For radiation dose reduction, the following was used: automated exposure control, adjustment of mA and/or kV according to patient size. COMPARISON: [facility], CR, XR CHEST 1VW (PORTABLE), 06/16/2016, 16 :59. FINDINGS: Image quality: Excellent. Pulmonary arteries: Pulmonary arteries are normal in size, and demonstrate no intraluminal filling defects to suggest central pulmonary embolism. Lungs and pleura: Focal opacity noted in the right lower lobe which could represent atelectasis versus pneumonia. Patchy opacity noted in the left lung base suspicious for pneumonia. Trace bilateral pleural fluid collections are noted. Central and peripheral airways are patent. Mediastinum: Heart size is enlarged, without pericardial effusion. Prominent bilateral hilar and mediastinal lymph nodes are noted which could be reactive or neoplastic. Thoracic aorta is normal in caliber and enhancement. Esophagus is normal in caliber, without hiatal hernia. Bones and chest wall: Multiple surgical clips noted in the breasts bilaterally. No suspicious bony lesions. Ribs and thoracic spine appear intact throughout. Thyroid gland is within normal limits. No axillary or supraclavicular adenopathy. Abdomen: Visualized upper abdominal solid organs appear normal in the early arterial phase of enhancement. IMPRESSION: 1. No pulmonary embolus. 2. Bibasilar lung opacities compatible with atelectasis versus pneumonia. Please correlate with clinical laboratory data. 3. Trace bilateral pleural effusions. 4. Cardiomegaly. 5. Bilateral hilar and mediastinal lymphadenopathy which could be reactive or neoplastic. Dictated by: Abigail Ty MD, PhD on 06/18/2016 at 15:50 Approved by: Abigail Ty MD, PhD on 06/18/2016 at 15:50 12-lead ECG RVR a fib at 138 otherwise no abnormality. Cardiac Echo Impressions Echocardiogram Report Name: CAITLIN FRASER MStudy Date: 06/18/2016 Height: 62 in Hospital Exam Location: [facility] Weight: 181 lb Gender: Female BSA: 1.8 m2 : 1940 Age: 75 yrs BP: 135/91 mmHg Reason For Study: Atrial fibrillation Ordering Physician: Performed By: Richa Diamond Referring Physician: Sj Godfrey Interpretation Summary 1) Normal left ventricular thickness, size, wall motion, and systolic function (EF 60-65%). 2) Normal right ventricular size and function. 3) Mild prolapse on the anterior leaflet of the mitral valve. 4) Mild posteriorly directed mitral regurgitation from the prolapse. 5) Moderately dilated left atrium. 6) Mildly enlarged ascending aorta (diameter 4.1cm). 7) Right sided volume overload present as noted on dilated IVC that collapses less than 50% with sniff test. 8) Compared to the Echo done 09/14/2012, atrial fibrllation is present and right sided filling pressure is higher on today's study. Assessment & Plan This is a 75-year-old female who presents with history over the past 2 days of worsening cough. She notes a productive she denies any fevers or chills. Does have malaise with this. No recent sick contacts. He does over the past several months have a cough has been evaluated by pulmonary provider and thought that it was related to acid reflux. He denies any head congestion or postnasal drainage. She denies any wheezing. She does feel like she has some chest tightness with coughing. Denies any abdominal pain. Denies any nausea or vomiting. Denies any alteration in bowel movements. Upon presentation she was found to be in RVR A. fib. Has no known history of this. She initially was seen in urgent care and because of this was sent over to the emergency room. # Bilateral lower lobe pneumonia versus atelectasis, present on admission as seen on CT scan -We will continue incentive spirometry -Sputum culture not available as there is no specimen as patient is unable to expectorate one. -No droplet precautions as results of respiratory viral PCR are negative -Continue on IV Rocephin and azithromycin IV day #5 -Albuterol nebs changed to Xopenex, due to tachycardia, and will use when necessary for wheezing # RVR A. fib, new onset, present on admission and ongoing - Cardiology has increased the metoprolol succinate 200 mg by mouth daily at bedtime -TSH is normal -Serial cardiac enzymes are negative so far. -[id number] is 4-[address] Ruffin has recommended and ordered Apixaban. Therefore, Lovenox and Coumadin were discontinued. -Continue on telemetry. Repeat EKG in a.m. -I have obtained cardiology consultation with Dr. Ruffin and his recommendations are as follows: "75 yo W admitted with new onset atrial fibrillation and new onset diastolic heart failure: # Dyspnea from diastolic heart failure: patient is volume overload on exam. Suspect patient had decompensation due to atrial fibrillation and rapid ventricular response. Her dyspnea has improved with diuresis but she remains on oxygen. I spent significant time educating the patient about her condition and answered her and her 's questions. Plan: - Continue furosemide 40mg IV daily with redose PRN to get goal negative 1L in 24 hours - AF management as below # Persistent AF: etiology likely idiopathic. No history of HTN. TSH normal. Patient continues to have rapid ventricular response. I spent significant time educating the patient about her condition and answered her and her 's questions. Plan: - Increase metoprolol XL from 50mg bid to 200mg qhs - Continue apixaban 5mg bid - Consider SAMEER with DCCV once patient euvolemic - Will consider rhythm control medication after ischemia evaluation # Mitral valve prolapse: prolapse involving the anterior leaflet. There appears to be mild mitral regurgitation. Will need monitoring as outpatient." Appreciate cardiology consultation and Dr. Ruffin's input. I discussed case with him at length. SAMEER with DCCV planned for tomorrow # DVT prophylaxis Patient was on therapeutic Lovenox now Apixaban 5 mg twice a day has been started # CODE STATUS Patient is full code. # Discussed with patient's and 2 sons at bedside at length. Pain Evaluation: Adequate Pain Control GI Prophylaxis: H2 biju VTE Mechanical Devices: Intermittant Pneumatic CD Resuscitation Status: CPR: Attempt Resuscitation Aubrey Meadows MD Jun 21, 2016 17:23
--- NOTE | 2016-06-21 17:48 | NUR ---
shift note pt remained asymptomatic in Afib with HR in the 130s all shift, aware. Pt started amiodarone this afternoon and is expected to have a SAMEER and cardioversion today. Administered an extra one time IVP of lasix on top of her morning dose to increases urine output but total has voided 975ml, Dr Denton aware. Per Dr Denton, took pt off of O2 and she desated down to 82% with movement. placed pt back on 2L NC and she's back at 93 or >, Dr Denton aware. Pt is A&OX3, has been on bedrest except to use the bathroom.
[2016-06-21] MEDS: MeTOProlol XL 50 mg ER24 Tablet PO SCH (22:20)
[2016-06-22] VITALS (15 sets, daily range): BP systolic 82–133; BP diastolic 57–104; PULSE 60–128; RESP 16–22; O2SAT 91–99
[2016-06-22 05:48] LABS: BASOPHILS % (AUTO) 0.4 % (0-3); MONOCYTES % (AUTO) 15.4 % (4-12); Mean Corpuscular Volume 98.1 fL (81-100); NEUTROPHILS % (AUTO) 64.8 % (40-74); Platelet Count 347 bil/L (150-400)
[2016-06-22 05:59] LABS: INR 1.12 ratio
--- NOTE | 2016-06-22 06:20 | NUR ---
Tele, Oxygen: Tele has been a fib 90s-110s, up to the 120s earlier in shift. Medications administered as ordered for heart rate control. Pt has been NPO since midnight for SAMEER and cardioversion later today. Pt occasionally taking the oxygen off, is on 3L NC. CPOX is in place, pt noted to be 87% on RA this fitting room checker, reminded to keep the oxygen in place.
[2016-06-22] MEDS: Azithromycin Inj 500 MG in Dextrose 5% w/Vial Mate 250 ML IV SCH (08:44)
[2016-06-22] MEDS: cefTRIAXone Inj 2,000 MG in IV Premix 1 EACH IV SCH (08:47)
[2016-06-22] MEDS: Furosemide 10 mg/mL 2 mL Inj IVPUSH SCH (09:21)
--- NOTE | 2016-06-22 12:33 | NUR ---
SAMEER attempted, but MD unable to pass SAMEER probe. Pt given 2mg Versed IV, 50 mcg Fentanyl IV, Viscous Lidocaine gargle.
[2016-06-22] MEDS ORDERED: Furosemide 10 mg/mL 4 mL Inj IVPUSH ONE (12:50)
[2016-06-22] MEDS: guaiFENesin 600 mg ER12 Tablet PO SCH ×2 (13:43→21:20)
[2016-06-22] MEDS ORDERED: fentaNYL-PF 50 mCg/mL 2 mL Inj ONE (13:48)
[2016-06-22] MEDS ORDERED: Atropine 1 mg/10 mL (Code) Syringe ONE (13:48)
[2016-06-22] MEDS ORDERED: 0.9% Sodium Chloride 500 ML ONE (13:48)
[2016-06-22] MEDS ORDERED: Methohexital 10 mg/mL 50 mL Inj ONE (13:48)
[2016-06-22] MEDS: Potassium Chloride 20 mEq SR Tablet PO SCH (14:44)
[2016-06-22] MEDS: MeTOProlol XL 50 mg ER24 Tablet PO SCH ×2 (14:45→21:21)
--- NOTE | 2016-06-22 16:40 | DRSVH ---
[facility] [address] [place] [address] Echocardiogram Report Name: CAITLIN FRASER MStudy Date: 06/22/2016 [facility] Exam Location: [facility] Gender: Female : 1940 Age: 75 yrs Reason For Study: Atrial fibrillation Ordering Physician: Performed By: Ana Samuels Interpretation Summary Unable to pass SAMEER probe as patient unable to swallow. Procedure: Informed consent for Transesophageal Echocardiogram, and use of a contrast agent as needed, was obtained prior to the procedure. The patient was brought to the [facility] in a fasting state. IV concious sedation was administered using versed and fentanyl. THE PROBE COULD NOT BE PASSED THUS THE EXAM WAS ABORTED. NO IMAGES OBTAINED. Reading Physician:04:40 PM
--- NOTE | 2016-06-22 18:14 | NUR ---
Cardiac- Patient denies chest pain. Tele- A fib: HR-90-120's. O2 on at 2 liters. Patient stated she is breathing alot easier, and not coughing as much. She expressed disappointment that she was unable to have the SAMEER procedure. Patient given the free trial Eliquis med trial RX given to me by Dr Denton for discharge.
--- NOTE | 2016-06-22 19:28 | PCM.PNMED ---
Subjective Date of Service Jun 22, 2016 Subjective Patient feels better today for the first time since she has been near. She also feels better than she has in a long time. Exam Vital Signs Vital Sign - Last Date Time Temp Pulse Resp B/P Pulse Ox O2 Delivery O2 Flow Rate FiO2 06/22/16 18:02 36.7 94 18 113/76 96 Nasal Cannula 2.00 Intake and Output 06/21/16 06/21/16 06/22/16 Cumulative From/Thru 15:00 23:00 07:00 06/16/16 16:44 - 06/22/16 06:06 Intake Total 150 ml 0 ml 8308 ml Output Total 200 ml 5650 ml Balance 150 ml -200 ml 2658 ml Intake Oral 0 ml 4544 ml IV Total 150 ml 3764 ml Output Urine Total 200 ml 5650 ml # Voids 3 # Bowel Movements 1 Exam General: Patient is still coughing, but is much more more comfortable today. HEENT: Head is atraumatic normocephalic. Eyes: Pupils are equally round and reactive to light and accommodation. Extraocular muscles are intact. Sclera are white anicteric. Subconjunctival mucosa is pink. Ears and nose are unremarkable. Oropharynx: There are no mucosal lesions, there is no thrush, there is no pharyngitis. Neck: Is supple, there are no nodes, or masses or tenderness. Chest: The lungs are much clearer. There are no rhonchi, wheezes or rubs. Heart: Rate is uncontrolled, but improved, rhythm is irregular. There is no murmur, rub or gallop appreciated although heart tones are distant. Abdomen: Good bowel sounds are present. Abdomen is obese, soft, nontender, no organomegaly or masses were appreciated. Extremities: Are symmetrical and well perfused. There is no edema, there is no cellulitis, no rash. Neurologic: There are no focal neurological deficits. Cranial nerves II through XII are intact. There are no sensory or motor deficits. Psychiatric: Patients mood is calm and shows no sign of significant agitation. Genital: Deferred Rectal: Deferred Lab and Diagnostics Result Diagram: 06/22/16 0530 06/22/16 1315 X-Rays, CTs and MRIs Patient Name: CAITLIN FRASER MR#: [id number] Location: [facility] Ordering Phys: DOC, ED Date of Service: 06/16/16 1658 PROCEDURE: X-RAY CHEST ONE VIEW, PORTABLE ([id number]) INDICATIONS: A FIB, COUGH TECHNIQUE: One view of the chest was acquired. COMPARISON: [facility], CR, XR CHEST 2V AP/PA AND LAT, 04/28/2016 , 10:50 AM. [facility], CR, CHEST 1VW (PORTABLE), 03/19/2014, 12:08. FINDINGS: Surgical changes and devices: None. Lungs and pleura: No pleural effusions or pneumothorax. Moderate patchy left basilar airspace opacity. Mediastinum: Mediastinal contours appear normal. Heart size is normal. Bones and chest wall: No suspicious bony lesions. Overlying soft tissues appear unremarkable. IMPRESSION: Left basilar pneumonia. Continued plain film surveillance is recommended to ensure resolution, and to exclude underlying or central malignancy. Dictated by: Angelika Osorio M.D. on 06/16/2016 at 17:40 Approved by: Angelika Osorio M.D. on 06/16/2016 at 17:40 PROCEDURE: CT ANGIO CHEST PULMONARY EMBOLISM ([id number]) INDICATIONS: Chest discomfort and SOB and Cough/Possible PE TECHNIQUE: After the administration of intravenous contrast, 2 mm thick sections acquired from the pulmonary apices to the posterior costophrenic angles. 3-dimensional maximum intensity projection (MIP) coronal and sagittal reformats were then acquired through the thorax. For radiation dose reduction, the following was used: automated exposure control, adjustment of mA and/or kV according to patient size. COMPARISON: [facility], CR, XR CHEST 1VW (PORTABLE), 06/16/2016, 16 :59. FINDINGS: Image quality: Excellent. Pulmonary arteries: Pulmonary arteries are normal in size, and demonstrate no intraluminal filling defects to suggest central pulmonary embolism. Lungs and pleura: Focal opacity noted in the right lower lobe which could represent atelectasis versus pneumonia. Patchy opacity noted in the left lung base suspicious for pneumonia. Trace bilateral pleural fluid collections are noted. Central and peripheral airways are patent. Mediastinum: Heart size is enlarged, without pericardial effusion. Prominent bilateral hilar and mediastinal lymph nodes are noted which could be reactive or neoplastic. Thoracic aorta is normal in caliber and enhancement. Esophagus is normal in caliber, without hiatal hernia. Bones and chest wall: Multiple surgical clips noted in the breasts bilaterally. No suspicious bony lesions. Ribs and thoracic spine appear intact throughout. Thyroid gland is within normal limits. No axillary or supraclavicular adenopathy. Abdomen: Visualized upper abdominal solid organs appear normal in the early arterial phase of enhancement. IMPRESSION: 1. No pulmonary embolus. 2. Bibasilar lung opacities compatible with atelectasis versus pneumonia. Please correlate with clinical laboratory data. 3. Trace bilateral pleural effusions. 4. Cardiomegaly. 5. Bilateral hilar and mediastinal lymphadenopathy which could be reactive or neoplastic. Dictated by: Abigail Ty MD, PhD on 06/18/2016 at 15:50 Approved by: Abigail Ty MD, PhD on 06/18/2016 at 15:50 12-lead ECG RVR a fib at 138 otherwise no abnormality. Cardiac Echo Impressions Echocardiogram Report Name: CAITLIN FRASER MStudy Date: 06/18/2016 Height: 62 in Hospital Exam Location: [facility] Weight: 181 lb Gender: Female BSA: 1.8 m2 : 1940 Age: 75 yrs BP: 135/91 mmHg Reason For Study: Atrial fibrillation Ordering Physician: Performed By: Richa Diamond Referring Physician: Sj Godfrey Interpretation Summary 1) Normal left ventricular thickness, size, wall motion, and systolic function (EF 60-65%). 2) Normal right ventricular size and function. 3) Mild prolapse on the anterior leaflet of the mitral valve. 4) Mild posteriorly directed mitral regurgitation from the prolapse. 5) Moderately dilated left atrium. 6) Mildly enlarged ascending aorta (diameter 4.1cm). 7) Right sided volume overload present as noted on dilated IVC that collapses less than 50% with sniff test. 8) Compared to the Echo done 09/14/2012, atrial fibrllation is present and right sided filling pressure is higher on today's study. Assessment & Plan This is a 75-year-old female who presents with history over the past 2 days of worsening cough. She notes a non-productive cough, she denies any fevers or chills. Does have malaise with this. No recent sick contacts. He does over the past several months have a cough has been evaluated by pulmonary provider and thought that it was related to acid reflux. He denies any head congestion or postnasal drainage. She denies any wheezing. She does feel like she has some chest tightness with coughing. Denies any abdominal pain. Denies any nausea or vomiting. Denies any alteration in bowel movements. Upon presentation she was found to be in RVR A. fib. Has no known history of this. She initially was seen in urgent care and because of this was sent over to the emergency room. # Bilateral lower lobe pneumonia versus atelectasis, present on admission as seen on CT scan -We will continue incentive spirometry -Sputum culture not available as there is no specimen as patient is unable to expectorate one. -No droplet precautions as results of respiratory viral PCR are negative -Continue on IV Rocephin and azithromycin IV day #5 -Albuterol nebs changed to Xopenex, due to tachycardia, and will use when necessary for wheezing # RVR A. fib, new onset, present on admission and ongoing - Cardiology has increased the metoprolol succinate 200 mg by mouth daily at bedtime and today would like to increase it to 200 mg by mouth twice a day. We will need to monitor patient closely for bradycardia and/or hypotension -TSH is normal -Serial cardiac enzymes are negative so far. -[id number] is 4-[address] Ruffin has recommended and ordered Apixaban. Therefore, Lovenox and Coumadin were discontinued. -Continue on telemetry. Repeat EKG in a.m. -I have obtained cardiology consultation with Dr. Ruffin and his recommendations are as follows: "75 yo W admitted with new onset atrial fibrillation and new onset diastolic heart failure: # Dyspnea from diastolic heart failure: patient is volume overload on exam. Suspect patient had decompensation due to atrial fibrillation and rapid ventricular response. Her dyspnea has improved with diuresis but she remains on oxygen. I spent significant time educating the patient about her condition and answered her and her 's questions. Plan: - Continue furosemide 40mg IV daily with redose PRN to get goal negative 1L in 24 hours - AF management as below # Persistent AF: etiology likely idiopathic. No history of HTN. TSH normal. Patient continues to have rapid ventricular response. I spent significant time educating the patient about her condition and answered her and her 's questions. Plan: - Increase metoprolol XL from 50mg bid to 200mg qhs - Continue apixaban 5mg bid - Consider SAMEER with DCCV once patient euvolemic - Will consider rhythm control medication after ischemia evaluation # Mitral valve prolapse: prolapse involving the anterior leaflet. There appears to be mild mitral regurgitation. Will need monitoring as outpatient." Appreciate cardiology consultation and Dr. Ruffin's input. I discussed case with him at length. SAMEER with DCCV was attempted today and the transesophageal echocardiogram portion of the exam could not be performed as patient was not able to swallow the scope. Therefore the procedure was aborted and the plan was to perform direct-current cardioversion in 3 weeks after patient has received 3 weeks of Apixaban. # DVT prophylaxis Patient was on therapeutic Lovenox now Apixaban 5 mg twice a day has been started # CODE STATUS Patient is full code. # Discussed with patient's at bedside at length again today. Dr. Hastings will follow in a.m. Pain Evaluation: Adequate Pain Control GI Prophylaxis: H2 biju VTE Prophylaxis: Other (Apixaban) VTE Mechanical Devices: Intermittant Pneumatic CD Resuscitation Status: CPR: Attempt Resuscitation Aubrey Meadows MD Jun 22, 2016 19:28
[2016-06-23] VITALS (8 sets, daily range): BP systolic 103–123; BP diastolic 68–83; PULSE 63–114; RESP 17–20; O2SAT 91–95
--- NOTE | 2016-06-23 03:10 | NUR ---
Heart rate: Tele has been a fib tonight with a rate in the 80s-90s. Pt is on 2L NC, CPOX in place while asleep. Pt has been maintaining sats in the mid . Addendum: 06/23/16 at 0318 by CAYLA FREITAS RN Attempted to turn oxygen down to 1L NC while asleep with CPOX on. Sats dropped to 87%, back up to 2L.
[2016-06-23 06:37] LABS: BASOPHILS % (AUTO) 0.2 % (0-3); MONOCYTES % (AUTO) 13.6 % (4-12); Mean Corpuscular Hemoglobin 32.8 pg (27.0-35.0); Mean Corpuscular Volume 98.8 fL (81-100); NEUTROPHILS % (AUTO) 72.7 % (40-74); Platelet Count 344 bil/L (150-400)
[2016-06-23 07:01] LABS: Magnesium 2.1 mg/dL (1.6-2.6)
[2016-06-23] MEDS: Furosemide 10 mg/mL 2 mL Inj IVPUSH SCH (08:11)
[2016-06-23] MEDS: guaiFENesin 600 mg ER12 Tablet PO SCH ×2 (08:12→21:03)
[2016-06-23] MEDS: Potassium Chloride 20 mEq SR Tablet PO SCH (08:12)
[2016-06-23] MEDS: Azithromycin Inj 500 MG in Dextrose 5% w/Vial Mate 250 ML IV SCH (08:12)
[2016-06-23] MEDS: MeTOProlol XL 50 mg ER24 Tablet PO SCH ×2 (08:12→21:03)
[2016-06-23] MEDS: cefTRIAXone Inj 2,000 MG in IV Premix 1 EACH IV SCH (09:54)
--- NOTE | 2016-06-23 11:44 | NUR ---
Social Work-readiness for discharge: Data:EMR Reviewed. Pt is on day 7 of hospitalization for new onset AFIB per H&P. Pt is not medically stable at this time. Per RN notes, pt has been up independent in her room. Cardiology is involved. No anticipated discharge needs. SW will continue to follow if needs arise. Assessment:Pt who is independent at baseline. Plan:Pt to discharge home when medically stable via POV. No anticipated discharge needs. SW will continue to follow if needs arise. RADHA Ayala
--- NOTE | 2016-06-23 13:11 | PCM.PNMED ---
Subjective Date of Service Jun 23, 2016 Subjective decreased to 87% on 1liters NC so increased back to 2LNC, maintained mid90s remained in persistent afib [id number] pt denied chest pain, palpitation, sob Exam Vital Signs Vital Sign - Last Date Time Temp Pulse Resp B/P Pulse Ox O2 Delivery O2 Flow Rate FiO2 06/23/16 10:37 114 06/23/16 09:03 36.9 19 112/70 Nasal Cannula 2.00 06/23/16 05:23 94 Intake and Output 06/22/16 06/22/16 06/23/16 Cumulative From/Thru 15:00 23:00 07:00 06/16/16 16:44 - 06/23/16 05:14 Intake Total 500 ml 350 ml 9158 ml Output Total 725 ml 150 ml 6525 ml Balance -225 ml 200 ml 2633 ml Intake Oral 500 ml 350 ml 5394 ml IV Total 3764 ml Output Urine Total 725 ml 150 ml 6525 ml # Voids 3 # Bowel Movements 1 Exam NAD, comfortably laying down on the bed no JVD, MMM, no LAD tachy irregular, nl s1, s2 no mrg LLL crackles, no wheezing S,ND,NT,normoactive BS+ warm, no edema, pulses 2/2 IVs and Medications Medications Reviewed: Medications were reviewed in detail Lab and Diagnostics Result Diagram: 06/23/16 0525 06/23/16 0525 X-Rays, CTs and MRIs Patient Name: CAITLIN FRASER MR#: [id number] Location: [facility] [place] Ordering Phys: LESLIE, SALINA BURGESS Date of Service: 06/16/161657 PROCEDURE: X-RAY CHEST ONE VIEW, PORTABLE ([id number]) INDICATIONS: A FIB, COUGH TECHNIQUE: One view of the chest was acquired. COMPARISON: [facility], CR, XR CHEST 2V AP/PA AND LAT, 04/28/2016 , 10:50 AM. [facility], CR, CHEST 1VW (PORTABLE), 03/19/2014, 12:08. FINDINGS: Surgical changes and devices: None. Lungs and pleura: No pleural effusions or pneumothorax. Moderate patchy left basilar airspace opacity. Mediastinum: Mediastinal contours appear normal. Heart size is normal. Bones and chest wall: No suspicious bony lesions. Overlying soft tissues appear unremarkable. IMPRESSION: Left basilar pneumonia. Continued plain film surveillance is recommended to ensure resolution, and to exclude underlying or central malignancy. Dictated by: Angelika Osorio M.D. on 06/16/2016 at 17:40 Approved by: Angelika Osorio M.D. on 06/16/2016 at 17:40 PROCEDURE: CT ANGIO CHEST PULMONARY EMBOLISM ([id number]) INDICATIONS: Chest discomfort and SOB and Cough/Possible PE TECHNIQUE: After the administration of intravenous contrast, 2 mm thick sections acquired from the pulmonary apices to the posterior costophrenic angles. 3-dimensional maximum intensity projection (MIP) coronal and sagittal reformats were then acquired through the thorax. For radiation dose reduction, the following was used: automated exposure control, adjustment of mA and/or kV according to patient size. COMPARISON: [facility], CR, XR CHEST 1VW (PORTABLE), 06/16/2016, 16 :59. FINDINGS: Image quality: Excellent. Pulmonary arteries: Pulmonary arteries are normal in size, and demonstrate no intraluminal filling defects to suggest central pulmonary embolism. Lungs and pleura: Focal opacity noted in the right lower lobe which could represent atelectasis versus pneumonia. Patchy opacity noted in the left lung base suspicious for pneumonia. Trace bilateral pleural fluid collections are noted. Central and peripheral airways are patent. Mediastinum: Heart size is enlarged, without pericardial effusion. Prominent bilateral hilar and mediastinal lymph nodes are noted which could be reactive or neoplastic. Thoracic aorta is normal in caliber and enhancement. Esophagus is normal in caliber, without hiatal hernia. Bones and chest wall: Multiple surgical clips noted in the breasts bilaterally. No suspicious bony lesions. Ribs and thoracic spine appear intact throughout. Thyroid gland is within normal limits. No axillary or supraclavicular adenopathy. Abdomen: Visualized upper abdominal solid organs appear normal in the early arterial phase of enhancement. IMPRESSION: 1. No pulmonary embolus. 2. Bibasilar lung opacities compatible with atelectasis versus pneumonia. Please correlate with clinical laboratory data. 3. Trace bilateral pleural effusions. 4. Cardiomegaly. 5. Bilateral hilar and mediastinal lymphadenopathy which could be reactive or neoplastic. Dictated by: Abigail Ty MD, PhD on 06/18/2016 at 15:50 Approved by: Abigail Ty MD, PhD on 06/18/2016 at 15:50 12-lead ECG RVR a fib at 138 otherwise no abnormality. Cardiac Echo Impressions Echocardiogram Report Name: CAITLIN FRASER MStudy Date: 06/18/2016 Height: 62 in Hospital Exam Location: [facility] [place] Weight: 181 lb Gender: Female BSA: 1.8 m2 : 1940 Age: 75 yrs BP: 135/91 mmHg Reason For Study: Atrial fibrillation Ordering Physician: Performed By: Richa Diamond Referring Physician: jS Godfrey Interpretation Summary 1) Normal left ventricular thickness, size, wall motion, and systolic function (EF 60-65%). 2) Normal right ventricular size and function. 3) Mild prolapse on the anterior leaflet of the mitral valve. 4) Mild posteriorly directed mitral regurgitation from the prolapse. 5) Moderately dilated left atrium. 6) Mildly enlarged ascending aorta (diameter 4.1cm). 7) Right sided volume overload present as noted on dilated IVC that collapses less than 50% with sniff test. 8) Compared to the Echo done 09/14/2012, atrial fibrllation is present and right sided filling pressure is higher on today's study. Assessment & Plan This is a 75-year-old female who presents with history over the past 2 days of worsening cough. She notes a non-productive cough, she denies any fevers or chills. Does have malaise with this. No recent sick contacts. He does over the past several months have a cough has been evaluated by pulmonary provider and thought that it was related to acid reflux. He denies any head congestion or postnasal drainage. She denies any wheezing. She does feel like she has some chest tightness with coughing. Denies any abdominal pain. Denies any nausea or vomiting. Denies any alteration in bowel movements. Upon presentation she was found to be in RVR A. fib. Has no known history of this. She initially was seen in urgent care and because of this was sent over to the emergency room. acute, active #dyspnea, mild hypoxia, secondary to HFpEF, BLL pneumonia vs atelectasis, present on admission as seen on CT scan, remained HD stable/afebrile, not much respiratory sx, w/u-resp PCR, BCX, MRSA swab all ngtd. -continue incentive spirometry, O2 supplement prn target >CiQ309%, Guaifenesin prn for cough -Continue on IV Rocephin and azithromycin IV day #6, will finish tomorrow, trends procalcitonin today -continue Xopenex prn for SOB -i/o net -500 yesterday, continue i/o, daily wt, furosemide 40mg IV daily with redose PRN to get goal negative 1L in 24 hours, will redose today PM. #new onset persistent Afib RVR, new onset, present on admission,TSH is normal, better controlled overnight <110s -appreciate cardiology input, -continue metoprolol succinate 200 mg bid, amiodarone 400 bid -continue Apixaban based on high [id number] is 4-5 -Continue on telemetry plan was to perform direct-current cardioversion in 3 weeks after patient has received 3 weeks of Apixaban, ischemic eval later. #HFpEF secondary to tachyarrhythmia afib, continue rate control/diuresis as above chronic, stable # Mitral valve prolapse: prolapse involving the anterior leaflet, mild MR, follow up in the clinic #breast cancer x2 on HRT, continue anastrozole DVT prophylaxis, systemic AC CODE STATUS full code. diet: heart healthy dispo: likely within 1-2days if patient remains stable, less hypoxic GI Prophylaxis: H2 biju VTE Prophylaxis: Other (Apixaban) VTE Mechanical Devices: Intermittant Pneumatic CD Resuscitation Status: CPR: Attempt Resuscitation Time spent 35min Julian Hastings MD Jun 23, 2016 13:11
[2016-06-23] MEDS ORDERED: Furosemide 10 mg/mL 4 mL Inj IVPUSH ONE (18:00)
[2016-06-24] VITALS (7 sets, daily range): BP systolic 103–124; BP diastolic 69–82; PULSE 70–95; RESP 18–20; O2SAT 93–98
--- NOTE | 2016-06-24 02:50 | NUR ---
OXYGEN NEEDS & SATURATIONS During night, CPOx alarmed, pts oxygen saturations maintaining mid 80s to 88% while asleep. RN went in to assess pt, pt had taken off nasal cannula 2L. Nasal cannula put back on, oxygen saturations immediately improved to mid 90s. Pt now high 90s w/ 2L oxygen when asleep. Continue to monitor.
[2016-06-24 06:00] LABS: BASOPHILS % (AUTO) 0.3 % (0-3); EOSINOPHILS % (AUTO) 1.7 % (0-5); MONOCYTES % (AUTO) 13.9 % (4-12); Mean Corpuscular Hemoglobin 32.4 pg (27.0-35.0); Mean Corpuscular Volume 98.5 fL (81-100); NEUTROPHILS % (AUTO) 70.2 % (40-74); Platelet Count 348 bil/L (150-400)
[2016-06-24 06:21] LABS: Magnesium 2.1 mg/dL (1.6-2.6); Phosphorus 3.2 mg/dL (2.5-4.9)
[2016-06-24] MEDS: cefTRIAXone Inj 2,000 MG in IV Premix 1 EACH IV SCH (08:30)
[2016-06-24] MEDS: MeTOProlol XL 50 mg ER24 Tablet PO SCH (08:32)
[2016-06-24] MEDS: Potassium Chloride 20 mEq SR Tablet PO SCH (08:32)
[2016-06-24] MEDS: guaiFENesin 600 mg ER12 Tablet PO SCH (08:32)
[2016-06-24] MEDS: Furosemide 10 mg/mL 2 mL Inj IVPUSH SCH (08:33)
[2016-06-24] MEDS: Azithromycin Inj 500 MG in Dextrose 5% w/Vial Mate 250 ML IV SCH (08:33)
--- NOTE | 2016-06-24 09:37 | DRSVH ---
PROCEDURE: X-RAY CHEST ONE VIEW, PORTABLE ([id number]) INDICATIONS: pulmonary edema follow up TECHNIQUE: One view of the chest was acquired. COMPARISON: [facility], CT, CT ANGIO CHEST PE, 06/18/2016, 15:35. [facility], CR, XR CHEST 1VW (PORTABLE), 06/16/2016, 16:59. FINDINGS: Surgical changes and devices: Clips are present overlying the inferior axillary regions bilaterally. Lungs and pleura: There is interval development of a small left pleural effusion. Linear opacity is p resent in the right base as well as small areas of streaky opacity within the left. Mediastinum: Mediastinal contours appear normal. Heart size is normal. Bones and chest wall: No suspicious bony lesions. Overlying soft tissues appear unremarkable. IMPRESSION: Left pleural effusion with streaky opacity suggestive of airspace disease such as pneumon ia with small superimposed parapneumonic effusion. Right basilar likely atelectasis is noted. Dictated by: Mary Jones M.D. on 06/24/2016 at 9:26 Approved by: Mary Jones M.D. on 06/24/2016 at 9:26
--- NOTE | 2016-06-24 10:49 | NUR ---
NUTRITION ASSESSMENT: ASSESS: Pt is a 75yo F admitted for afib and pneumonia. Cardiology is following. Pt is a Heart Healthy diet with good PO at 75-100% PMHX: Breast Ca, DM, HTN LABS: Reviewed. Cl 90, CO2 31, Glu 144, Alb 3.3 MEDS: Reviewed. Senna, Vit D, MVI GI: BMx1 06/23 SKIN: Jose 21 CURRENT WTS: 77.3kg, BMI 31.2kg/m2, admit wt 79.7kg, IBW 50kg DIET: Heart Healthy, PO 75-100% EST. NEEDS: BMI Kcals: 1545-1700kcal/day (20-22kcal/kg) Pro: 60-75g/day (1.2-1.5g/kg IBW) NUTRITION DIAGNOSIS: 1.) No nutrition diagnosis at this time NUTRITION INTERVENTION: 1.) Continue current diet and monitor PO intake/tolerance MONITOR / EVAL: PO, wt, GI, labs, POC, nutrition status. Will continue to monitor per low nutrition risk guidelines
[2016-06-24] MEDS ORDERED: METO-272 PO (14:15)
[2016-06-24] MEDS ORDERED: AMIO200T PO (14:15)
[2016-06-24] MEDS ORDERED: APIX5TAB PO (14:15)
--- NOTE | 2016-06-24 14:18 | NUR ---
Social Work: Discharge Data: Pt is on day 8 of hospitalization. EMR reviewed, d/c orders are in. No d/c planning needs identified. AUDIT REVIEWER will continue to follow if needs arise. Assessment: Pt who is independent at baseline. Plan: Pt will d/c home via POV today with family. No d/c planning needs identified. AUDIT REVIEWER will continue to follow if needs arise. RADHA Thomas
--- NOTE | 2016-06-24 14:19 | PCM.DIMED ---
Discharge Instructions Date of Service Jun 24, 2016 Dates of Hospitalization Jun 16, 2016 at 20:04 Discharge Diagnosis Discharge Diagnosis New onset afib with RVR Acute respiratory failure secondary to fluid overload due to tachycardic induced cardiomyopathy, HFpEF, atelectasis, Mitral valve prolapse Medication Instructions Please take amiodarone 400mg(2tab of 200mg) twice a day for one week, then take 200mg 1tablet once day afterwards Please take Eliquis 5mg twice a day, blood thinner to prevent stroke, monitor symptoms of bleeding, stop if you notice bloody stools Please take metoprolol succinate 50mg daily for heart rate control Diet Low fat, Low Sodium, Heart Healthy Activity No restrictions Call your provider Shortness of breath, Chest pain Patient Instructions You were hospitalized with difficulty breathing, found to have irregular heart rhythm which eventually controlled with medicine. He also received water pills given the fluid buildup in her lungs. Please continue medicine as instructed as above Please follow up with your primary doctor in 2weeks, Cardiology in 2weeks Follow-up Provider: Sj Godfrey MD Follow-up with PCP in: 2 weeks Provider: Ed Denton MD Follow-up in: 2 weeks Julian Hastings MD Jun 24, 2016 14:19
--- NOTE | 2016-06-24 14:36 | PROG NOTE ---
[address] [address] PROGRESS NOTE PATIENT: CAILTIN FRASER : 1940 MR#: [id number] ADMIT: 06/16/2016 JOB ID: [id number] DATE: 06/24/2016 CHIEF COMPLAINT: Shortness of breath. SUBJECTIVE: The patient says she feels better. Review of systems is significant for dysphagia. My colleague, Dr. Denton, could not pass the probe to do a SAMEER. She tells me she had an endoscopy most recently in February 2016, but no recent dilation. Dr. López, it sounds like, recommended dilation of upper esophageal sphincter mechanism at some point in the future but she has not had a chance to follow up with him yet. Vital signs, temperature 37.3, blood pressure 103/69, pulse on monitoring is about 70 beats per minute. It appears that she was in atrial flutter sometimes with rapid ventricular response until about 5 p.m. yesterday, June 23, and then converted to a normal sinus rhythm without pause at 5 p.m. on June 23, and remained in normal sinus rhythm since then. PHYSICAL EXAMINATION: Very pleasant woman, sitting in bed, in no apparent distress. Eyes: No scleral icterus. Heart: Normal S1, S2. No murmurs. Lungs: Clear to auscultation anteriorly. Abdomen: Soft, positive bowel sounds. Extremities: Warm, well perfused. No clubbing, cyanosis, or edema. Skin: No rashes or lesions. LABORATORIES: Reviewed. She is a little bit anemic. Hematocrit is 33%. Platelet count stable. White count stable. Creatinine was stable. Potassium 4.5. A1c of 6.2%. TSH was normal. Echocardiogram showed normal LV size and wall thickness. Moderately dilated left atrium. Mildly dilated ascending aorta. Documented rhythms included both atrial fibrillation and atrial flutter, as well as currently normal sinus rhythm on amiodarone. ASSESSMENT: This is a 75-year-old woman with paroxysmal atrial fibrillation, which eventually organized into paroxysmal atrial flutter, and chemically converted to normal sinus rhythm on amiodarone. Both abnormal rhythms were documented. EKG on June 16, 2016, at 1725 showed atrial fibrillation with rapid ventricular response. Rate was 138 beats per minute. On her telemetry strips from yesterday at about 1500 showed atrial flutter, which then converted to a normal sinus rhythm. PLAN: The patient is doing well on medical therapy and she can go home. She has not had ischemic evaluation yet to determine whether she is eligible for class IC antiarrhythmics, and that can be done as an outpatient. I recommend she go home on the following medicines: 1. Lasix 40 mg by mouth daily. 2. Toprol-XL 50 mg daily. 3. Potassium chloride 20 mEq daily. Because of her dysphagia she may benefit from a powdered form of the potassium supplement. 4. Amiodarone 400 mg twice a day for a week and then change her over to 200 mg daily. 5. Eliquis 5 mg twice a day for stroke prevention. The patient's CHADS2-Vasc score is 3, with points for female gender and age over 75, so technically she is high risk for stroke. I think that she would benefit from close outpatient followup with Dr. Denton. She would benefit from outpatient ischemic evaluation to see whether she is eligible for class IC antiarrhythmics. She may benefit from seeing Dr. Farias to discuss atrial fibrillation ablation if medical management does not work out for her. We had a detailed and very clifford conversation about toxicity of amiodarone but agreed to keep it on for now recognizing it is not a "forever drug." I recommend keeping her on oral anticoagulation probably for life. I strongly advised her to follow up with a digestive health specialist in particular since further treatment of her atrial fibrillation may involve transesophageal echocardiogram and we cannot pass the probe the way that her structure is at this juncture. It is absolutely imperative for us to be able to pass the probe in order to offer her atrial fibrillation ablation in the future. Thank you for the opportunity to evaluate her.
--- NOTE | 2016-06-24 16:03 | NUR ---
Discharge Pt discharged to home at 1601. Taken off unit in wheelchair, accompanied by and LABEL REWINDER. All personal belongings sent with pt. Discharge instructions given and explained. Pt vocalizes understanding. Hard copies of prescriptions given and called in to [facility]. Care notes provided. Instructed to follow up with PCP in 2 weeks, and appointment has been scheduled with cardiology in 2 weeks.
[2016-06-25] MEDS ORDERED: MeTOProlol XL 50 mg ER24 Tablet PO SCH (08:30)
--- NOTE | 2016-06-26 19:28 | PCM.DC.MED ---
Discharge Summary Date of Service Jun 24, 2016 Dates of Hospitalization Date of Hospital Admission Jun 16, 2016 at 20:04 Date of Discharge: Jun 24, 2016 Providers: Admitting Physician: Christine Mcginnis MD Primary Care Physician: Sj Godfrey MD Attending Physician: Christine Mcginnis MD Diagnosis at Time of Discharge Diagnosis at Time of Discharge New onset afib with RVR Acute respiratory failure secondary to fluid overload due to tachycardic induced cardiomyopathy, HFpEF, atelectasis, Mitral valve prolapse breast cancer x2 on HRT Consultations Cardiology Procedures XRay, CTs & MRIs Patient Name: CAITLIN FRASER MR#: [id number] Location: [facility] Ordering Phys: LESLIE, SALINA BURGESS Date of Service: 06/16/161657 PROCEDURE: X-RAY CHEST ONE VIEW, PORTABLE ([id number]) INDICATIONS: A FIB, COUGH TECHNIQUE: One view of the chest was acquired. COMPARISON: [facility], CR, XR CHEST 2V AP/PA AND LAT, 04/28/2016 , 10:50 AM. [facility], CR, CHEST 1VW (PORTABLE), 03/19/2014, 12:08. FINDINGS: Surgical changes and devices: None. Lungs and pleura: No pleural effusions or pneumothorax. Moderate patchy left basilar airspace opacity. Mediastinum: Mediastinal contours appear normal. Heart size is normal. Bones and chest wall: No suspicious bony lesions. Overlying soft tissues appear unremarkable. IMPRESSION: Left basilar pneumonia. Continued plain film surveillance is recommended to ensure resolution, and to exclude underlying or central malignancy. Dictated by: Angelika Osorio M.D. on 06/16/2016 at 17:40 Approved by: Angelika Osorio M.D. on 06/16/2016 at 17:40 PROCEDURE: CT ANGIO CHEST PULMONARY EMBOLISM ([id number]) INDICATIONS: Chest discomfort and SOB and Cough/Possible PE TECHNIQUE: After the administration of intravenous contrast, 2 mm thick sections acquired from the pulmonary apices to the posterior costophrenic angles. 3-dimensional maximum intensity projection (MIP) coronal and sagittal reformats were then acquired through the thorax. For radiation dose reduction, the following was used: automated exposure control, adjustment of mA and/or kV according to patient size. COMPARISON: [facility], CR, XR CHEST 1VW (PORTABLE), 06/16/2016, 16 :59. FINDINGS: Image quality: Excellent. Pulmonary arteries: Pulmonary arteries are normal in size, and demonstrate no intraluminal filling defects to suggest central pulmonary embolism. Lungs and pleura: Focal opacity noted in the right lower lobe which could represent atelectasis versus pneumonia. Patchy opacity noted in the left lung base suspicious for pneumonia. Trace bilateral pleural fluid collections are noted. Central and peripheral airways are patent. Mediastinum: Heart size is enlarged, without pericardial effusion. Prominent bilateral hilar and mediastinal lymph nodes are noted which could be reactive or neoplastic. Thoracic aorta is normal in caliber and enhancement. Esophagus is normal in caliber, without hiatal hernia. Bones and chest wall: Multiple surgical clips noted in the breasts bilaterally. No suspicious bony lesions. Ribs and thoracic spine appear intact throughout. Thyroid gland is within normal limits. No axillary or supraclavicular adenopathy. Abdomen: Visualized upper abdominal solid organs appear normal in the early arterial phase of enhancement. IMPRESSION: 1. No pulmonary embolus. 2. Bibasilar lung opacities compatible with atelectasis versus pneumonia. Please correlate with clinical laboratory data. 3. Trace bilateral pleural effusions. 4. Cardiomegaly. 5. Bilateral hilar and mediastinal lymphadenopathy which could be reactive or neoplastic. Dictated by: Abigail Ty MD, PhD on 06/18/2016 at 15:50 Approved by: Abigail Ty MD, PhD on 06/18/2016 at 15:50 ECG 12 Lead RVR a fib at 138 otherwise no abnormality. Cardiac Echo Impression Echocardiogram Report Name: CAITLIN FRASER MStudy Date: 06/18/2016 Height: 62 in Hospital Exam Location: [facility] Weight: 181 lb Gender: Female BSA: 1.8 m2 : 1940 Age: 75 yrs BP: 135/91 mmHg Reason For Study: Atrial fibrillation Ordering Physician: Performed By: Richa Diamond Referring Physician: Sj Godfrey Interpretation Summary 1) Normal left ventricular thickness, size, wall motion, and systolic function (EF 60-65%). 2) Normal right ventricular size and function. 3) Mild prolapse on the anterior leaflet of the mitral valve. 4) Mild posteriorly directed mitral regurgitation from the prolapse. 5) Moderately dilated left atrium. 6) Mildly enlarged ascending aorta (diameter 4.1cm). 7) Right sided volume overload present as noted on dilated IVC that collapses less than 50% with sniff test. 8) Compared to the Echo done 09/14/2012, atrial fibrllation is present and right sided filling pressure is higher on today's study. Brief History H&P obtained by on 06/16 75 yo h/o bilateral breast cancer s/p lumpectomy, radiation, and chemo in 2009 and 2012 and otherwise healthy admitted with dyspnea. Patient states that she could walk about a mile at her baseline without much difficulty. About 3 months ago, patient developed a cough and has had gradual worsening of her dyspnea to the degree that she cannot breathe well even at rest. In the ER, she was noted to be in atrial fibrillation with rapid ventricular response. Further investigations revealed bilateral lower lobe infiltrate that was initially felt to be from pneumonia and treated with antibiotics but patient did not improve. Echocardiogram done yesterday showed hypervolemia with normal left ventricular function. She received furosemide 20 mg IV times one yesterday and felt a little bit better today. Her dose was increased to 40 mg IV today and she feels even better and remains on oxygen. Denies fevers, chills, nausea, or vomiting. She does get chest pain that is related to her cough. Hospital Course This is a 75-year-old female who presents with history over the past 2 days of worsening cough. She notes a non-productive cough, she denies any fevers or chills. Does have malaise with this. No recent sick contacts. He does over the past several months have a cough has been evaluated by pulmonary provider and thought that it was related to acid reflux. He denies any head congestion or postnasal drainage. She denies any wheezing. She does feel like she has some chest tightness with coughing. Denies any abdominal pain. Denies any nausea or vomiting. Denies any alteration in bowel movements. Upon presentation she was found to be in RVR A. fib. Has no known history of this. She initially was seen in urgent care and because of this was sent over to the emergency room. #dyspnea, mild hypoxia, secondary to HFpEF, BLL pneumonia vs atelectasis, present on admission as seen on CT scan, remained HD stable/afebrile, pt was empricially treated with Rocephin/azithromycin for 7days, infectious w/u including resp PCR, BCX, MRSA swab were all negative. pt mainly symptomatically better with diuretics, lasix 40mg bid with intermittent redosing bid, seemed euvolemic, so diuretics stopped upon d/c. #new onset persistent Afib RVR, present on admission,TSH is normal, pt was seen by cardiology, pt failed SAMEER-DCCV as pt couldn't swallow, heart rate eventually controlled with amiodarone 400mg bid, metoprolol succinate 50mg qd, Apixaban started based on high [id number] is 4-5, plan was to perform direct- current cardioversion in 3 weeks after patient has received 3 weeks of Apixaban , ischemic eval later. pt will be followed by . #HFpEF secondary to tachyarrhythmia afib, reached to euvolemic status upon d/c with diuretics. chronic, stable # Mitral valve prolapse: prolapse involving the anterior leaflet, mild MR, shown in TTE, needs to follow up in the clinic #breast cancer x2 on HRT, continued anastrozole, follow up with Oncology Exam Vital Signs (Last) Date Time Temp Pulse Resp B/P Pulse Ox O2 Delivery O2 Flow Rate FiO2 06/24/16 12:46 37.3 70 20 103/69 96 Nasal Cannula 1.00 Exam NAD, comfortably laying down on the bed no JVD, MMM, no LAD tachy irregular, nl s1, s2 no mrg LLL crackles, no wheezing S,ND,NT,normoactive BS+ warm, no edema, pulses 2/2 Test 06/16/16 17:05 06/17/16 10:56 06/18/16 05:00 06/22/16 05:30 Hemoglobin A1c 6.2% (4.8-5.6) Thyroid Stimulating Hormone (TSH) 2.760uIU/mL (0.450-4.500) Urine Color Dark yellow (YELLOW) Urine Appearance Hazy (CLEAR,HAZY) Urine pH 6.0 (5.0-8.0) Urine Specific [place] 1.030 (1.003-1.035) Urine Protein Tracemg/dL (NEG,TRACE) Urine Glucose (UA) Negativemg/dL (NEGATIVE) Urine Ketones Negativemg/dL (NEGATIVE) Urine Occult Blood Negative (NEGATIVE) Urine Nitrite Negative (NEGATIVE) Urine Bilirubin Negative (NEGATIVE) Urine Urobilinogen Normalmg/dL (NORMAL) Urine Leukocyte Esterase Negative (NEGATIVE) Urine RBC 0-2/hpf (0-2) Urine WBC 0-5/hpf (0-5) Urine Epithelial Cells Occasional/hpf (NONE-MOD) Urine Crystals None seen (NONE SEEN) Urine Bacteria None/hpf (NONE-FEW) Urine Hyaline Casts None/lpf (NONE) Urine Granular Casts None seen (NONE SEEN) Urine Waxy Casts None seen (NONE SEEN) Urine Red Blood Cell Casts None seen (NONE SEEN) Urine White Blood Cell Casts None seen (NONE SEEN) Urine Mucus Present (None Seen) Urine Trichomonas None seen (NONE SEEN) Urine Yeast None (NONE SEEN) Urinalysis Comment None Urine Culture Reflexed Not indicated Troponin T 0.010ug/L (0.0-0.011) Prothrombin Time 12.0sec (8.1-12.5) Prothromb Time International Ratio 1.12ratio Test 06/23/16 05:25 06/24/16 05:30 06/24/16 13:05 Pro-B-Type Natriuretic Peptide 2208pg/mL (0-738) Procalcitonin < 0.05ng/mL (See Comment) White Blood Count 7.6th/mm3 (3.8-10.1) Red Blood Count 3.36mil/mm3 (3.90-5.20) Hemoglobin 10.9g/dL (12.0-15.6) Hematocrit 33.1% (35.0-46.0) Mean Corpuscular Volume 98.5fL (81-100) Mean Corpuscular Hemoglobin 32.4pg (27.0-35.0) Mean Corpuscular Hemoglobin Concent 32.9% (32.0-37.0) Red Cell Distribution Width 11.3% (12.3-15.4) Platelet Count 348bil/L (150-400) Neutrophils (%) (Auto) 70.2% (40-74) Lymphocytes (%) (Auto) 13.4% (14-46) Monocytes (%) (Auto) 13.9% (4-12) Eosinophils (%) (Auto) 1.7% (0-5) Basophils (%) (Auto) 0.3% (0-3) Phosphorus Level 3.2mg/dL (2.5-4.9) Magnesium Level 2.1mg/dL (1.6-2.6) Sodium Level 133mEq/L (134-144) Potassium Level 4.5mEq/L (3.5-5.2) Chloride Level 89mEq/L (97-108) Carbon Dioxide Level 29mmol/L (18-29) Blood Urea Nitrogen 24mg/dL (8-27) Creatinine 0.69mg/dL (0.57-1.00) Estimat Glomerular Filtration Rate 118mL/min (>59) Glucose Level 159mg/dL (60-99) Calcium Level 9.2mg/dL (8.5-10.1) Total Bilirubin 0.2mg/dL (0.0-1.2) Aspartate Amino Transf (AST/SGOT) 19U/L (0-50) Alanine Aminotransferase (ALT/SGPT) 29U/L (0-32) Alkaline Phosphatase 64U/L (25-165) Total Protein 6.8g/dL (6.4-8.4) Albumin 3.5g/dL (3.4-5.0) Discharge Medications Discharge Medications Amiodarone (Amiodarone) 200 Mg Tablet 400 MG PO BID Prescribed by: JULIAN JADE MD Anastrozole (Anastrozole) 1 Mg Tablet 1 MG PO DAILY (Reported) Apixaban (Eliquis) 5 Mg Tablet 5 MG PO BID Prescribed by: JULIAN JADE MD Ergocalciferol (Vitamin D2) (Vitamin D) 400 Unit Tablet 400 UNIT PO DAILY ( Reported) Gluc 2Kcl/Chondr/Majo Hy/Hy AC (Glucosamine & Chondroitin Cap) 1 Each Capsule 1 EACH PO DAILY (Reported) Metoprolol Succinate ER (Metoprolol Succinate ER) 50 Mg Tab.er.24h 50 MG PO DAILY Prescribed by: JULIAN JADE MD Multivitamin (Multivitamins) 1 Each Capsule 1 EACH PO DAILY (Reported) [place]-3/Dha/Epa/Fish Oil (Fish Oil 1,000 mg Softgel) 1 Each Capsule 1 EACH PO DAILY (Reported) Pramipexole Dihydrochloride (Pramipexole Dihydrochloride) 0.5 Mg Tablet 0.5 MG PO QID (Reported) Temazepam (Temazepam) 15 Mg Capsule 15 MG PO HS (Reported) As needed Albuterol HFA (Proair HFA) 8.5 Gm Hfa.aer.ad 2 PUFFS INHALATION Q4H PRN PRN For Shortness of Breath (Reported) oxyCODONE (oxyCODONE) 5 Mg Tablet 2.5-5 MG PO TID PRN PRN For Pain (Reported) Additional med instructions Please take amiodarone 400mg(2tab of 200mg) twice a day for one week, then take 200mg 1tablet once day afterwards Please take Eliquis 5mg twice a day, blood thinner to prevent stroke, monitor symptoms of bleeding, stop if you notice bloody stools Please take metoprolol succinate 50mg daily for heart rate control Followup Plan Disposition: home Discharge Diet: Low fat, Low Sodium, Heart Healthy Discharge Activity: No restrictions Patient Instructions You were hospitalized with difficulty breathing, found to have irregular heart rhythm which eventually controlled with medicine. He also received water pills given the fluid buildup in her lungs. Please continue medicine as instructed as above Please follow up with your primary doctor in 2weeks, Cardiology in 2weeks Follow-up Provider: Sj Godfrey MD Follow-up with PCP in: 2 weeks Provider: dE Denton MD Follow-up in: 2 weeks Time spent 65min Julian Jade MD Jun 26, 2016 18:10
[2016-10-13] MEDS ORDERED: ATRV10T PO (12:40)
[2016-10-13] MEDS ORDERED: TAMO20TA4 PO (12:40)
[2016-10-13] MEDS ORDERED: HYDR28OI2 TP (12:40)
== END 2016-06-24 16:02 | disposition home or self-care (01) | DRG 291 ==
LOC: SED 16:40 → MPC 20:04 → OBSVTOIN 20:04 → MPC 21:00
PROVIDERS: ADMIT Specialist; ATTEND Specialist
DX: I50.31 Acute diastolic (congestive) heart failure (principal); J18.9 Pneumonia, unspecified organism; J96.01 Acute respiratory failure with hypoxia; I48.1 Persistent atrial fibrillation; I42.9 Cardiomyopathy, unspecified; E11.9 Type 2 diabetes mellitus without complications; Z87.891 Personal history of nicotine dependence; I34.1 Nonrheumatic mitral (valve) prolapse

== ENCOUNTER 2016-10-14 09:54 | Day surgery (SDC) | payer MEDICARE, OTHER ==
[~2016-10-14] VITALS: Ht 157.5 cm; Wt 80.3 kg
[~2016-10-14 09:54] MED LIST changes: +AMIO200T PO; -ANAS1TAB7 PO; +APIX5TAB PO; +ATRV10T PO; +HYDR28OI2 TP; +Lactated Ringer's 1,000 ML IV ONE; +METO-272 PO; -OXYC1TAB24 PO; +OXYC5TAB72 PO; -PRAM0.256 PO; +PRAM0.5T10 PO; +TAMO20TA4 PO
[2016-10-14] MEDS ORDERED: Propofol 10,000 mCg/mL 20 mL Inj ONE (09:55)
[2016-10-14 10:21] VITALS: BP 129/81; PULSE 63; RESP 16; O2SAT 93
--- NOTE | 2016-10-14 10:39 | PCM.HPANE ---
Patient Data Surgeon Admitting Provider: Attending Provider:Marleni Lord MD Primary Care Physician:Sj Godfrey MD Other Provider:Kasi Ortiz Anesthesia Reason for Visit Webbed Esophagus Ht/WT & BMI Height (Feet): 5 Height (Inches): 2 Weight (Kilograms): 80.29 Body Mass Index 32.00 Allergies Coded Allergies: acetaminophen (Verified Adverse Reaction, Intermediate, activates restless leg syndome, 06/16/16) Past Anesthesia History Anesthesia History: Positive for:: Abnormal Airway ('A LITTLE SMALLER IN ONE SPOT'), Denies:: Anesthesia Reactions, Difficult Intubation, Fam Anesthesia Reaction , Fam Malignant Hypertherm, Malignant Hyperthermia Diabetes History Hx Diabetes?: No (Diet control) MRSA MRSA: No Medications Blood Thinner: Xarelto (ON ELOQUIS) Last Dose Blood Thinner: Oct 08, 2016 Hypertension Medication: No Home Meds Incl Beta Cathy: No Active Scripts Metoprolol Succinate ER 50 Mg Tab.er.24h50 Mg PO DAILY 30 Days Prov:Julian Hastings MD 06/24/16 Amiodarone 200 Mg [id number] Mg PO BID #50 TABLET Prov:Julian Hastings MD 06/24/16 Apixaban (Eliquis)5 Mg Tablet5 Mg PO BID 30 Days Prov:Julian Hastings MD 06/24/16 Reported Medications Tamoxifen Citrate 20 Mg [id number] Mg PO DAILY 10/13/16 Atorvastatin (Lipitor)10 Mg Tab10 Mg PO DAILY Ref 0 10/13/16 oxyCODONE 5 Mg Tablet2.5-5 Mg PO TID PRN For Pain 06/16/16 Pramipexole Dihydrochloride 0.5 Mg Tablet0.5 Mg PO QID 06/16/16 Ergocalciferol (Vitamin D2) (Vitamin D)400 Unit [id number] Unit PO DAILY 07/24/15 Multivitamin (Multivitamins)1 Each Capsule1 Each PO DAILY 07/24/15 Temazepam 15 Mg [id number] Mg PO HS 12/18/13 Discontinued Reported Medications Hydrocortisone Acetate (Hydrocortisone)28 Gm Oint...g.28 Gm TP 10/13/16 Gluc 2Kcl/Chondr/Majo Hy/Hy AC (Glucosamine & Chondroitin Cap)1 Each Capsule1 Each PO DAILY 07/24/15 [place]-3/Dha/Epa/Fish Oil (Fish Oil 1,000 mg Softgel)1 Each Capsule1 Each PO DAILY 07/24/15 Albuterol HFA (Proair HFA)8.5 Gm Hfa.aer.ad2 Puffs INHALATION Q4H PRN For Shortness of Breath 06/16/16 Anastrozole 1 Mg Tablet1 Mg PO DAILY 01/09/15 History History of ENT Problems?: Yes HEENT History: Positive for:: Abnormal Airway ('A LITTLE SMALLER IN ONE SPOT') Cataracts Dysphagia Denies:: Difficult Intubation Glaucoma Hearing Problem Sinus Problem TMJ Denture Type: Full- Lower Teeth Condition: Within Normal Limits Hx of Heart Problems?: Yes Cardiovascular History: Positive for:: Atrial Fibrillation Chest Pain Denies:: Congestive Heart Failure Hypertension Other History/Comments PAROXYSMAL AFIB Hx of Respiratory Problem?: Yes Respiratory History: Positive for:: Dyspnea (This admit) Denies:: Asthma COPD Cough Hemoptysis Pneumonia Tuberculosis Other Resp Pertinent History: EMPHYSEMA Hx Neurologic Problems?: No Neurological History: Denies:: CVA Hx of GI Problems?: Yes Hx of Problems?: No Genitourinary History: Positive for:: Urinary Tract Infection (A LONG TIME AGO.) Denies:: HX of Hemodialysis Kidney Stones HX of Peritoneal Dialysis: No Female Hx: Positive for:: Problems with Breasts? (Hx bilateral Breast CA with lumpectomy) Denies:: Currently Endometriosis Pelvic Inflammatory Skin History: Denies:: History Skin Disorders? Pressure Ulcers Hx Musculoskeletal Problems?: No Musculoskeletal History: Denies:: Joint Replacement Hx of Psycho/Social Problems?: No Psycho Social History: Positive for:: Anxiety Denies:: Hx Depression Hx Surgeries?: Yes (Appe/Cataract/Lumpectomy) Hx Any Other Health Problems?: No Other History: Positive for:: Cancer (Bilateral Breast) Denies:: Endocrine Disease Hospitalization Thyroid Disease History Blood Transfusions: Positive for:: Blood Transfusions Denies:: Blood Transfuse Reaction Hx Diabetes: No (Diet control) Hx Alcohol Use: Yes (Rare social)Hx Substance Use: No Smoking Status: Former Smoker Have You Smoked inLast 12 mo: No Stop/Bang Treated for Sleep Apnea?: Yes Do You Have a CPAP Machine?: Yes RODRIGO Risk Assessment: High Risk, =/>3 Yes RODRIGO Category 2: Yes Risk Assessment Category Category 1A: Patient has history of documented sleep apnea, and HAS NOT received any narcotic, sedative or anesthesia administration during this stay. Category 1B: Patient has history of documented sleep apnea, and HAS received any narcotic , sedative or anesthesia administration during this stay Category 2: Patient has SUSPECTED Obstructive Sleep Apnea, and HAS received any narcotic , sedative or anesthesia administration during this stay. Category 3: Patient has SUSPECTED Obstructive Sleep Apnea and HAS NOT received narcotic, sedative or anesthesia administration during this stay. Category 4: Outpatient in Procedural Areas with known sleep apnea or who screen positive for High Risk via the STOP/BANG questionnaire. Exam Exam Vital Signs Vital Signs Date Time Temp Pulse Resp B/P Pulse Ox O2 Delivery O2 Flow Rate FiO2 10/14/16 10:21 63 16 129/81 93 Room Air General Appearance: Alert, Oriented X3, Cooperative, No Acute Distress HEENT/AIRWAY: MP 3 Lungs: Clear to Auscultation Heart: Exam Unremarkable, Regular Rate/Rhythm, Normal S1, Normal S2, No Murmurs /Rubs/Gallops Meds/Labs/Diagnostics Admission Meds Current Medications Lactated Ringer's (Lr) 1,000 ml @ 10 mls/hr Q24H ONCE IV Last administered on 10/14/16t 10:29; Start 10/14/16 at 06:00; Stop 10/15/16 at 05:59 Plan Impression Patient chart reviewed, patient interviewed and anesthestic plan with risks, benefits, and alternatives discussed, and informed consent obtained. NPO per Anesth. Guidelines: Yes ASA Physical Status: ASA3 Severe Disease Anesthetic Plan: GA, TIVA Bene/Risks/Altern/Consents: Yes HP Complete Prior to Induction: Yes Elie Roberts MD Oct 14, 2016 10:39
[2016-10-14] MEDS ORDERED: MetoCLOpramide 5 mg/mL 2 mL Inj IVPUSH PRN (10:40)
[2016-10-14] MEDS ORDERED: Lactated Ringer's 1,000 ML IV SCH (10:40)
[2016-10-14] MEDS ORDERED: Ondansetron 2 mg/mL 2 mL Inj IVPUSH PRN (10:40)
[2016-10-14] MEDS ORDERED: Albuterol-Ipratropium 3 mL Inhalation Solution NEB PRN (10:40)
[2016-10-14 11:08] VITALS: BP 131/81; PULSE 60; RESP 14; O2SAT 94
--- NOTE | 2016-10-14 11:19 | PCM.ANEP1 ---
Post Anesthesia Phase 1 PACU Phase 1 Assessment Date of Service: Oct 14, 2016 Vital Signs Vital Signs Date Time Temp Pulse Resp B/P Pulse Ox O2 Delivery O2 Flow Rate FiO2 10/14/16 11:08 60 14 131/81 94 Room Air 10/14/16 10:21 63 16 129/81 93 Room Air Anesthetic Administered: GA, TIVA Level of Alertness: Awake, talking MCCOLLUM's with Equal Strength: Yes Pain: No Nausea or Vomiting: No Cardiovascular Function and Hy: Yes Oxygen Delivery: Room Air Lungs: Clear to Auscultation Dermatome Level: Full Sensation Complications: No Follow up Care: No Elie Roberts MD Oct 14, 2016 11:19
[2016-10-14 11:21] VITALS: BP 144/73; PULSE 95; RESP 14; O2SAT 92
--- NOTE | 2016-10-14 11:23 | ENDO ---
[address] [address] ENDOSCOPY PROCEDURE PATIENT: CAITLIN FRASER : 1940 MR#: [id number] ADMIT: 10/14/2016 JOB ID: [id number] DATE: 10/14/2016 PROCEDURE: Esophagogastroduodenoscopy. INDICATION: Patient with a history of dysphagia and recent imaging showed a webbed esophagus. Please see anesthesia report for details regarding ASA classification, Mallampati score and medications. INSTRUMENT USED: GIF H 180 J. PROCEDURE DETAILS: 1. After informed consent was obtained, the patient was brought into the GI suite, where she was placed on oxygen via nasal cannula and monitored with continuous pulse oximeter, telemetry and blood pressure monitoring. A time-out was performed. Then, she was placed in the left lateral decubitus position and medications were administered for sedation. A bite block was placed. The standard EGD scope was inserted through the bite block and advanced gently into the upper esophageal sphincter. At this point, we slowly advanced the scope and we encountered what appeared to be a partial web at 17 cm. The web was disrupted with biopsy forceps. The remainder of the esophagus otherwise appeared unremarkable. Multiple random biopsies were obtained in the mid esophagus. 2. The scope was then advanced to the second portion of the duodenum without difficulty. The examined portions of the duodenum appeared normal. 3. Normal appearing pylorus and antrum. 4. Retroflexed views in the gastric body revealed an approximately 4 mm polyp in the proximal gastric body that was removed with cold biopsy forceps. The remainder of the examination was otherwise unremarkable. IMPRESSION: 1. Partial web at 17 cm disrupted with biopsy forceps. 2. Proximal gastric body polyp. RECOMMENDATIONS: 1. Await biopsy results. 2. Restart anticoagulation. 3. Followup in GI clinic. COMPLICATIONS: None. ESTIMATED BLOOD LOSS: Less than 5 mL.
[2016-10-14 11:29] VITALS: BP 137/90; PULSE 67; RESP 14; O2SAT 97
--- NOTE | 2016-10-18 13:49 | PATH ---
SURGICAL PATHOLOGY Attending Physician:Mar Choi CASE STATUS: Signed Out PATIENT NAME: CAITLIN FRASER PID: [id number] : 1940 DATE COLLECTED:10/14/2016 16:11 SPECIMEN: 1: Stomach, Polyp, Biopsy 2: Esophagus, Biopsy 3: Esophagus, Biopsy CLINICAL HISTORY: 1. GASTRIC BODY POLYP BX 2. PROXIMAL ESOPHAGEAL WEB BX 3. MID-ESOPHAGEAL BX FINAL DIAGNOSIS: 1.GASTRIC BODY POLYP: CHANGES CONSISTENT WITH HYPERPLASTIC POLYP, NEGATIVE FOR ATYPIA. Negative for evidence of Helicobacter. Negative for intestinal metaplasia. Negative for dysplasia and malignancy. 2.PROXIMAL ESOPHAGEAL WEB BIOPSY: SQUAMOUS MUCOSA WITH NONSPECIFIC REACTIVE CHANGES. NO GASTRIC-TYPE MUCOSA IDENTIFIED. Negative for dysplasia and malignancy. Negative for squamous intraepithelial eosinophils. 3.MID ESOPHAGUS BIOPSY: FRAGMENTS OF SQUAMOUS MUCOSA WITH CHRONIC INFLAMMATION AND MILD REACTIVE CHANGES. Negative for dysplasia and malignancy. Negative for squamous intraepithelial eosinophils. ICD10 code K31.7 GROSS DESCRIPTION: The specimen is received in three formalin filled containers labeled with the patient's name. 1). The specimen is sublabeled "gastric body polyp" and consists of a 0.2 x 0.2 x 0.1 CM portion of tissue which is entirely submitted in cassette 1A. 2). The specimen is sublabeled "proximal esophageal web" and consists of 2 portions of tissue which aggregate to 0.2 x 0.2 x 0.2 CM. The specimen is entirely submitted in cassette 2A. 3). The specimen is sublabeled "mid esophageal" and consists of a 0.3 x 0.2 x 0.2 CM portion of tissue which is entirely submitted in cassette 3A. 10/14/2016 [facility] MICRO DESCRIPTION: See diagnosis. ICD-9 CODES: CPT CODES: 1: 24835 2: 25003 3: 85985 Electronically Signed Out Harris Devlin MD [facility] Pathology [facility] [address], [place] [address] Technical component performed at [facility], [facility] [address], [place], [address]
== END 2016-10-14 23:59 | disposition home or self-care (01) ==
LOC: END 09:54
PROVIDERS: ATTEND Internal Medicine Gastroenterology
DX: Q39.4 Esophageal web (principal); K31.7 Polyp of stomach and duodenum; E78.5 Hyperlipidemia, unspecified; I20.0 Unstable angina; C50.919 Malignant neoplasm of unspecified site of unspecified female breast; E66.9 Obesity, unspecified; Z68.33 Body mass index [BMI] 33.0-33.9, adult; Z79.01 Long term (current) use of anticoagulants; Z79.810 Long term (current) use of selective estrogen receptor modulators (SERMs)
CPT/HCPCS: 43239; J7120

== ENCOUNTER 2016-12-27 08:36 | Day surgery (SDC) | payer MEDICARE, OTHER ==
[~2016-12-27] VITALS: Ht 157.5 cm; Wt 79.4 kg
[~2016-12-27 08:36] MED LIST changes: +0.9% Sodium Chloride 1,000 ML IV SCH; -GLUC-120 PO; -HYDR28OI2 TP; -Lactated Ringer's 1,000 ML IV ONE; -OMEG-38 PO; +Sodium Chloride LOK Flush 10 mL Syringe IV PRN; +fentaNYL-PF 50 mCg/mL 2 mL Inj IVPUSH PRN
[2016-12-27 09:07] VITALS: BP 140/78; PULSE 66; RESP 14; O2SAT 96
[2016-12-27 09:57] VITALS: BP 124/69; PULSE 55; RESP 16; O2SAT 94
[2016-12-27 10:07] VITALS: BP 124/69; PULSE 55; RESP 14; O2SAT 93
[2016-12-27 10:17] VITALS: BP 118/68; PULSE 54; RESP 16; O2SAT 92
[2016-12-27 10:22] VITALS: BP 133/68; PULSE 57; RESP 16; O2SAT 96
--- NOTE | 2016-12-27 20:23 | ENDO ---
[address] [address] ENDOSCOPY PROCEDURE PATIENT: CAITLIN FRASER : 1940 MR#: [id number] ADMIT: 12/27/2016 JOB ID: [id number] DATE: 12/27/2016 PROCEDURE: Colonoscopy. INDICATIONS: Patient with a history of dysplastic colon polyp. The patient's ASA classification is 2, Mallampati score is 2. MEDICATIONS: 1. Versed 5 mg. 2. Fentanyl 100 mcg. INSTRUMENT USED: PCF H 180 AL. PREPARATION QUALITY: Good. PROCEDURE DETAILS: After informed consent was obtained, the patient was brought into the GI suite, where she was placed on oxygen via nasal cannula and monitored with continuous pulse oximeter, telemetry, and blood pressure monitoring. A time-out was performed. Then, she was placed in a left lateral decubitus position and medications were administered for sedation. Digital rectal exam was performed which was unremarkable. The colonoscope was then inserted into the rectum and advanced under direct visualization to the cecum which was identified by the presence of the ileocecal valve and appendiceal orifice. Once the cecum was reached, the colonoscope was withdrawn back into the rectum and the mucosa and lumen were examined. In the rectum, retroflexion was performed. Following retroflexion, remaining air in the rectum was suctioned, and the procedure was completed. FINDINGS: 1. In the ascending colon, there were three polyps ranging in size from 4-5 mm. All three polyps were removed with a cold snare. 2. In the descending colon, there was a diminutive polyp that was removed with cold biopsy forceps. IMPRESSION: 1. Three ascending colon polyps. 2. Descending colon polyp. 3. Scattered diverticula throughout the entire colon. 4. On retroflexed views in the rectum, moderate-sized internal hemorrhoids were noted. IMPRESSION: 1. Three ascending colon polyps. 2. Descending polyp. 3. Scattered diverticula throughout the colon. 4. Internal hemorrhoids. RECOMMENDATIONS: 1. Fiber-rich diet. 2. Repeat colonoscopy in two years. COMPLICATIONS: None. ESTIMATED BLOOD LOSS: Less than 5 mL.
--- NOTE | 2016-12-30 09:33 | PATH ---
SURGICAL PATHOLOGY Attending Physician:Mar Choi CASE STATUS: Signed Out PATIENT NAME: CAITLIN FRASER PID: [id number] : 1940 DATE COLLECTED:12/27/2016 16:00 SPECIMEN: 1: Colon, Polyp 2: Colon, Polyp CLINICAL HISTORY: 1. ASCENDING COLON POLYP X3 2. DESCENDING COLON POLYP X1 FINAL DIAGNOSIS: 1.ASCENDING COLON POLYPS: TUBULAR ADENOMAS, 2. HYPERPLASTIC POLYP, 1. 2.DESCENDING COLON POLYP: HYPERPLASTIC POLYP. ICD10 D12.2 K63.5 GROSS DESCRIPTION: Received two formalin-filled containers, both are labeled with the patient's name. 1. In a container labeled "descending colon polyp", the specimen consists of three portions of tissue which aggregate to 0.3 x 0.3 x 0.2 cm. The specimen is entirely submitted in cassette 1A. 2. The specimen is labeled "descending colon polyp", the specimen consists of a 0.3 x 0.2 x 0.2 cm portion of tissue which is entirely submitted in cassette 2A. ([facility]:[id number]) MICRO DESCRIPTION: See diagnosis. ICD-9 CODES: CPT CODES: 1: 39422 2: 82031 Electronically Signed Out Thu Hughes MD [facility] [address], [place] [address] Technical component performed at [facility], [facility] [address], [address]
== END 2016-12-27 23:59 | disposition home or self-care (01) ==
LOC: END 08:36
PROVIDERS: ATTEND Internal Medicine Gastroenterology
DX: Z12.11 Encounter for screening for malignant neoplasm of colon (principal); Z86.010 Personal history of colon polyps; D12.2 Benign neoplasm of ascending colon; K63.5 Polyp of colon; K64.8 Other hemorrhoids; K57.30 Diverticulosis of large intestine without perforation or abscess without bleeding; E78.5 Hyperlipidemia, unspecified; G47.33 Obstructive sleep apnea (adult) (pediatric); G25.81 Restless legs syndrome; Q39.4 Esophageal web; Z85.3 Personal history of malignant neoplasm of breast
CPT/HCPCS: 45380; 45385; 88305; 99153; G0500; J2250; J3010; J7030